=== PATIENT | female | born 1990 | race Caucasian/White ===

== ENCOUNTER 2023-06-28 18:25 | Observation (INO) ==
--- NOTE | 2023-06-28 18:37 | ED Triage Note ---
Date of Service June 28, 2023 Provider in Triage Author: Trevor Wyatt A History of Present Illness This patient was briefly evaluated while in triage. An abbreviated physical exam was performed. This patient is a 32-year-old Female who presents to the ED for evaluation of abdominal pain. 13 weeks . [facility]. Is from [place]. Scheduled to see Dr Ling locally next week. Has left side abd pain and headache. Symptoms started 4 or 5 days ago. No improvement with Tylenol. No hx abd surg. 5 pregnancies, 2 living children. No vaginal bleeding. Physical Exam Limited Triage Exam: VITALS: Vitals are noted on the nurse's note and reviewed by myself. Vital signs stable. GENERAL: Well-developed, well-nourished, white female, who is in no acute distress and resting comfortably. Patient is cooperative with the examination. HEART: Regular rate and rhythm without murmurs gallops or rubs. LUNGS: Clear to auscultation bilaterally without wheezes, rales or rhonchi. No retractions or accessory muscle use. NEURO: Patient was alert and oriented to person place and time. CN II through XII grossly intact. Initial orders for labs and / or imaging were placed and patient was placed in the waiting area until a bed is available. Please see further documentation for the full ED course. MDM / Impression Impression Impression: Pyelonephritis, First trimester , Acute left flank pain
[2023-06-28 19:13] LABS: Basophils # (auto) 0.02 K/uL (0.00-0.20); Basophils % (auto) 0.2 %; Eosinophils # (auto) 0.05 K/uL (0.00-0.50); Eosinophils % (auto) 0.4 %; Hematocrit (blood only) 32.1 % (37.0-47.0); Hemoglobin 10.7 g/dl (12.0-16.0); Immature Granulocytes # (auto) 0.06 K/uL (0.01-0.20); Immature Granulocytes % (auto) 0.5 %; Lymphocytes # (auto) 1.31 K/uL (1.20-3.40); Mean Corpuscular Hemoglobin 25.8 pg (25.0-34.0); Mean Corpuscular Hgb Conc 33.3 g/dL (32.0-36.0); Mean Corpuscular Volume 77.3 fL (80.0-100.0); Mean Platelet Volume 10.8 fL (9.4-12.4); Monocytes # (auto) 0.85 K/uL (0.11-0.59); Monocytes % (auto) 7.2 %; Neutrophils # (auto) 9.58 K/uL (1.40-6.50); Neutrophils % (auto) 80.7 %; Platelet Count 271 K/uL (130-400); RDW Coefficient of Variation 16.9 % (11.5-14.5); RDW Standard Deviation 47.7 fL (36.4-46.3); Red Blood Count 4.15 M/uL (4.20-5.40); White Blood Count 11.87 K/ul (4.8-10.8)
[2023-06-28 19:18] LABS: Appearance Urine Cloudy (Clear); Bacteria Urine Automated 4+ (None Seen); Bilirubin Urine Negative (Negative); Blood Urine Trace (Negative); Color Urine Yellow; Glucose Urine UA Negative (Negative); Ketones Urine Negative (Negative); Leukocyte Esterase Urine 3+ (Negative); Nitrite Urine Negative (Negative); Protein Urine Negative (Negative); RBC Urine Automated 0-2 /hpf (0-2); Specific Gravity Urine 1.007 (1.000-1.030); Urobilinogen Urine Negative (Negative); WBC Urine Automated >50 /hpf (0-5); pH Urine 6.5 (4.5-7.5)
[2023-06-28 19:30] LABS: Albumin Globulin Ratio 0.9 (0.9-2); Albumin Level 3.4 gm/dl (3.4-5.0); BUN Creatinine Ratio 10.5 (10-20); Bilirubin,Total 0.3 mg/dl (0.2-1.0); Calcium 9.5 mg/dl (8.6-10.3); Creatinine Clr Calc Pharmacy 138.7 ml/min; Est GFR (African American) 144.2 ml/min; Est GFR (Non-African American) 124.4 ml/min; Globulin 3.8 gm/dl (2.5-4.0); Potassium 3.5 mmol/L (3.5-5.1); Total Protein 7.2 gm/dl (6.0-8.3)
[2023-06-28 20:22] LABS: Amphetamines+Metham, Urine Pos (Neg); Barbiturates, Urine Neg (Neg); Benzodiazepine, Urine Neg (Neg); Cocaine, Urine Neg (Neg); MDMA (Ecstacy), Urine Neg (Neg); Marijuana, Urine Pos (Neg); Methadone, Urine Neg (Neg); Opiate, Urine Neg (Neg); Phencyclidine, Urine Neg (Neg)
[2023-06-28] MEDS ORDERED: PROMETHAZINE HCL 12.5 MG in SODIUM CHLORIDE 0.9% 50 ML IV STA (20:31)
--- NOTE | 2023-06-28 20:32 | Emergency Department Note ---
Impression & Plan Pyelonephritis, First trimester , Acute left flank pain ED Provider Note NAME: GERMAINE KOCH AGE: 32 SEX: F : 1990 ARRIVES VIA: Walk-In INFORMANT: Patient, ED PROVIDER(S): Eren Cabrales DO CHIEF COMPLAINT: Flank pain HPI: The patient is a 32-year-old female who presented to the emergency department for an evaluation of flank pain. The patient is currently 13 weeks by date. She has been noticing left-sided flank pain. She is unsure if she is having a kidney stone. She is not sure if she is having a urinary tract infection. She denies having any vaginal discharge. The patient does not have an [facility] doctor yet. She is currently living in a group home because of a very bad social situation. ROS: See above HPI for pertinent positives & negatives. A total of 10 systems reviewed and were otherwise negative. PAST MEDICAL HISTORY: See Below PAST SURGICAL HISTORY: See Below FAMILY HISTORY: See Below SOCIAL HISTORY: See Below HOME MEDICATIONS: See Below ALLERGIES: See Below VITALS: See Below PHYSICAL EXAMINATION: GENERAL: Patient is awake alert in no acute distress patient is resting comfortably and showing no signs of anxiety EYES: The conjunctivae are clear. The pupils are round and reactive. EARS, NOSE, MOUTH AND THROAT: The nose is without any evidence of any deformity. Mucous membranes are moist. Tongue is midline. NECK: The neck is nontender and supple. RESPIRATORY: Normal respiratory effort is noted there is no evidence of wheezing rhonchi or rales CARDIOVASCULAR: Regular rate and rhythm noted there no murmurs rubs or gallops normal S1 normal S2. GASTROINTESTINAL: The abdomen is soft and nondistended. There is left-sided tenderness to palpation but no guarding or rigidity. BACK: There is no midline tenderness noted. Left CVA tenderness was noted to percussion. MUSCULOSKELETAL/EXTREMITIES: There is no evidence of gross deformity full range of motion is noted in the hips and shoulders. SKIN: There is no obvious evidence of any rash. There are no petechiae, pallor or cyanosis noted. NEUROLOGIC: Patient is awake alert and oriented x3 strength is symmetric patellar reflexes are 2+ bilaterally MEDICAL DECISION MAKING: The patient is a 32-year-old female who presented to the emergency department for an evaluation of flank pain. The patient is also currently . The patient was treated with IV fluids as well as IV pain medication in the emergency department. She was also treated with IV antibiotics for presumed urinary tract infection. I discussed patient's laboratory and radiographic studies with her. Given her current social situation as well as her current I do feel the patient would be a better candidate for inpatient management. I discussed patient's condition with the on-call [facility] hospitalist. They did request that I discussed the case with the on-call [facility] physician. Triage Nursing notes reviewed. Prior medical records reviewed Vital Signs: reviewed and remarkable for no significant abnormalities Differential diagnosis: Etiologies such as threatened AB, miscarriage, ectopic , dysfunction uterine bleeding, bleeding dyscrasia, trauma, infection, as well as others were entertained. ER treatment provided: See below Diagnostics interpreted by me: ECG: none Cardiac Monitoring: An order was placed for continuous cardiac monitoring. The monitor shows a rate of 91 bpm with sinus rhythm. Laboratory studies: As stated above and show below. Imaging studies: See below. Consultation(s): I discussed this case with Dr. Mayen who is on-call for the [facility] hospitalist group. I discussed this case with Dr. Adam who is on-call for [facility]. Past Med/Surg History Problem List (Updated 06/28/23 @ 22:16 by Eren Cabrales DO) Acute left flank pain (Acute) First trimester (Acute) Pyelonephritis (Acute) Lymphoma Medical History Miscarriage Social History Smoking Status: Current every day smoker Feels Safe at Home: Yes Allergies Allergies Allergy/AdvReac Type Severity Reaction Status Date / Time bee venom protein (honey bee) Allergy Severe Anaphylaxis Verified 06/28/23 21:11 latex Allergy Intermediate HIVES/RASH Verified 06/28/23 21:11 Home Meds Home Medications Medication Instructions Recorded Confirmed acetaminophen 500 mg tablet 500 - 1,000 mg PO DIRECTED PRN 06/28/23 06/28/23 (Tylenol Extra Strength) Pain vit no.95-ferrous 1 tab PO DAILY 06/28/23 06/28/23 fumarate 28 mg-folic acid 800 mcg tablet () Results & Data (ED) Vital Signs Vital Signs - 24 hr 06/28/23 18:31 06/28/23 21:04 06/28/23 21:06 Temperature 36.9 C Temperature Source Temporal Artery Scan Pulse Rate 116 H Pulse Rate [Right Finger] 91 H Pulse Rhythm [Right Finger] Regular Pulse Strength [Right Finger] Normal Respiratory Rate 18 18 Respiratory Effort / Characteristics Non-Labored Spontaneous Non-Labored Spontaneous Respiratory Depth Normal Normal Respiratory Pattern Regular Regular Blood Pressure 107/67 Blood Pressure [Right Arm] 121/67 Blood Pressure Mean 80 Blood Pressure Mean [Right Arm] 85 Blood Pressure Position Sitting Pulse Oximetry 100 96 100 Oxygen Delivery Method Room Air Room Air Room Air Sepsis Recent Fever Within 48 Hours No Sepsis New/Unexplained Change in Mental Status N/A Sepsis Action Taken by Nursing No Action Required 06/28/23 22:21 Temperature Temperature Source Pulse Rate Pulse Rate [Right Finger] 101 H Pulse Rhythm [Right Finger] Regular Pulse Strength [Right Finger] Normal Respiratory Rate 19 Respiratory Effort / Characteristics Non-Labored Spontaneous Respiratory Depth Normal Respiratory Pattern Regular Blood Pressure Blood Pressure [Right Arm] 97/75 L Blood Pressure Mean Blood Pressure Mean [Right Arm] 82 Blood Pressure Position Pulse Oximetry 98 Oxygen Delivery Method Room Air Sepsis Recent Fever Within 48 Hours Sepsis New/Unexplained Change in Mental Status Sepsis Action Taken by Shelter Medications Current Medication List: was personally reviewed by me Laboratory Data Attestation: I reviewed the patient's lab results. 06/28/23 18:49 06/28/23 18:49 Lab Results 06/28/23 06/28/23 Range/Units 18:49 20:42 WBC 11.87 H (4.8-10.8) K/ul RBC 4.15 L (4.20-5.40) M/uL Hgb 10.7 L (12.0-16.0) g/dl Hct 32.1 L (37.0-47.0) % MCV 77.3 L (80.0-100.0) fL MCH 25.8 (25.0-34.0) pg MCHC 33.3 (32.0-36.0) g/dL RDW Std Deviation 47.7 H (36.4-46.3) fL RDW Coeff of [place] 16.9 H (11.5-14.5) % Plt Count 271 (130-400) K/uL MPV 10.8 (9.4-12.4) fL Immature Gran % (Auto) 0.5 % Neut % (Auto) 80.7 % Lymph % (Auto) 11.0 % Schleicher % (Auto) 7.2 % Eos % (Auto) 0.4 % Baso % (Auto) 0.2 % Neut # (Auto) 9.58 H (1.40-6.50) K/uL Lymph # (Auto) 1.31 (1.20-3.40) K/uL Schleicher # (Auto) 0.85 H (0.11-0.59) K/uL Eos # (Auto) 0.05 (0.00-0.50) K/uL Baso # (Auto) 0.02 (0.00-0.20) K/uL Immature Gran # (Auto) 0.06 (0.01-0.20) K/uL Sodium 134 L (136-145) mmol/L Potassium 3.5 (3.5-5.1) mmol/L Chloride 104 (98-107) mmol/L Carbon Dioxide 22 (21-32) mmol/L Anion Gap 8 (3-11) BUN 6 (6-23) mg/dl Creatinine 0.57 L (0.6-1.2) mg/dl Est Cr Clr Drug Dosing 138.7 ml/min Est GFR ( Amer) 144.2 ml/min Est GFR (Non-Af Amer) 124.4 ml/min BUN/Creatinine Ratio 10.5 (10-20) Glucose 99 (70-99(Fasting)) mg/dl Calcium 9.5 (8.6-10.3) mg/dl Total Bilirubin 0.3 (0.2-1.0) mg/dl AST 17 (13-39) U/L ALT 14 (7-52) U/L Alkaline Phosphatase 88 (34-104) U/L Total Protein 7.2 (6.0-8.3) gm/dl Albumin 3.4 (3.4-5.0) gm/dl Globulin 3.8 (2.5-4.0) gm/dl Albumin/Globulin Ratio 0.9 (0.9-2) Lipase 11 (11-82) U/L HCG, Quant 89921 mIU/ml Urine Color Yellow Urine Appearance Cloudy A (Clear) Urine pH 6.5 (4.5-7.5) Ur Specific [place] 1.007 (1.000-1.030) Urine Protein Negative (Negative) Urine Glucose (UA) Negative (Negative) Urine Ketones Negative (Negative) Urine Blood Trace H (Negative) Urine Nitrite Negative (Negative) Urine Bilirubin Negative (Negative) Urine Urobilinogen Negative (Negative) Ur Leukocyte Esterase 3+ H (Negative) Urine WBC (Auto) >50 H (0-5) /hpf Urine RBC (Auto) 0-2 (0-2) /hpf U Hyaline Cast (Auto) 3-5 H (0-2) /lpf U Epithel Cells (Auto) 11-20 H (0-2) /hpf Urine Bacteria (Auto) 4+ H (None Seen) Urine Opiates Screen Neg (Neg) Ur Methadone, Qual Neg (Neg) Urine Barbiturates Neg (Neg) Ur Phencyclidine (PCP) Neg (Neg) U Amphetamin/Meth Scrn Pos H (Neg) MDMA (Ecstasy) Screen Neg (Neg) U Benzodiazepines Scrn Neg (Neg) Ur Cocaine Metabolite Neg (Neg) U Marijuana (THC) Screen Pos H (Neg) Blood Type A Positive Administered Medications Discontinued Medications Ceftriaxone Sodium (Rocephin) 2,000 mg in 50 mls @ 100 mls/hr IV NOW STA Stop: 06/28/23 20:51 Last Infusion: 06/28/23 22:20 Dose: Infused Documented By: Admin: 06/28/23 21:02 Dose: 100 mls/hr Documented By: GLORIA Sodium Chloride (Nss) 1,000 mls @ 999 mls/hr IV .Q1H1M ONE Stop: 06/28/23 21:22 Last Infusion: 06/28/23 22:21 Dose: Infused Documented By: Admin: 06/28/23 21:00 Dose: 999 mls/hr Documented By: GLORIA Acetaminophen (Ofirmev) 1,000 mg in 100 mls @ 400 mls/hr IV NOW STA Stop: 06/28/23 20:45 Last Infusion: 06/28/23 21:28 Dose: Infused Documented By: Admin: 06/28/23 21:13 Dose: 400 mls/hr Documented By: GLORIA Promethazine HCl (Phenergan) 12.5 mg in 50.5 mls @ 202 mls/hr IV NOW STA Stop: 06/28/23 21:44 Last Admin: 06/28/23 22:19 Dose: 202 mls/hr Documented By: GLORIA Imaging Data Attestation: I personally reviewed and interpreted this imaging study as follows: My Impression: I reviewed the images with [facility]. The ultrasound appears to be consistent with a single live intrauterine gestation at approximately 12 weeks and 3 days. The retroperitoneal ultrasound appears to be consistent with increased echogenicity of the left kidney possible pyelonephritis, final reports are pending. Discharge Plan Visit Data Chief Complaint: Abdominal Pain Stated Complaint: PREG 13 WKS, LT FLANK/ABD PAIN, MIGRAINES ED Provider: Eren Cabrales Discharge Problem: Pyelonephritis, First trimester , Acute left flank pain Patient Disposition: Being Evaluated by Hospitalist Forms Stand Alone Forms: [facility] Prescriptions Prescriptions: No Action acetaminophen [Tylenol Extra Strength] 500 mg Tablet 500 - 1,000 mg PO DIRECTED PRN (Reason: Pain) PNV cmb#95-ferrous fumarate-FA [] 28 mg iron- 800 mcg Tablet 1 tab PO DAILY Referrals Referrals: PCP,NO [Primary Care Provider] -
[2023-06-28] MEDS: SODIUM CHLORIDE 0.9% 1,000 ML IV ONE (21:00)
[2023-06-28] MEDS: cefTRIAXone SODIUM 2,000 MG/50 ML BAG IV STA (21:02)
[2023-06-28] MEDS: ACETAMINOPHEN 1,000 MG/100 ML VIAL IV STA (21:13)
[2023-06-28] MEDS: PROMETHAZINE 12.5 MG/50.5 ML BAG IV STA (22:19)
--- NOTE | 2023-06-28 23:11 | Ultrasound Report ---
Exam(s): US OB 1st TRIMESTER EXAM: US First Trimester , Transabdominal CLINICAL HISTORY: Reason for exam: left side abd pain. +. TECHNIQUE: Real-time transabdominal obstetrical ultrasound of the maternal pelvis and a first trimester with image documentation. COMPARISON: No relevant prior studies available. FINDINGS: Gestation: There is a single intrauterine fetus. pole crown- rump length measures 5.86 cm consistent with 12 weeks 3 days gestation. heart rate 180 bpm. There is a yolk sac measuring 4 mm. Anatomy: The estimated date delivery is January 07, 2024. Placenta/amniotic fluid: Cannot be adequately evaluated due to the early gestational age. Uterus/cervix: Unremarkable. No myometrial mass. Ovaries: The right ovary measures 3.5 x 1.7 x 2.6 cm with normal Doppler blood flow. The left ovary measures 2.6 x 1.2 x 2.3 cm with normal appearance and normal Doppler blood flow. No mass. Free fluid: No free fluid. IMPRESSION: Single live intrauterine fetus with size consistent with 12 weeks 3 days gestation. The estimated date of delivery is January 07, 2024. Electronically signed by: Cedrick Carmona MD 06/28/23 23:10 PM
--- NOTE | 2023-06-28 23:20 | Ultrasound Report ---
Exam(s): US RENAL EXAM: US Retroperitoneal Limited, Renal CLINICAL HISTORY: Reason for exam: flank pain. TECHNIQUE: Real-time limited ultrasound of the retroperitoneum with image documentation. COMPARISON: No relevant prior studies available. FINDINGS: Right kidney: The right kidney measures 12.3 x 4.5 x 5.6 cm with normal appearance. No hydronephrosis or mass. No stones. Left kidney: The left kidney measures 15.3 x 6.7 x 5.2 cm with mild hydronephrosis. No mass or calculus is seen. Slight improved left hydronephrosis postvoid. IMPRESSION: Mild left hydronephrosis, slightly improved postvoid. Electronically signed by: Cedrick Carmona MD 06/28/23 23:19 PM
--- NOTE | 2023-06-28 23:30 | History & Physical Report ---
Date of Service June 28, 2023 Assessment & Plan (1) Acute left flank pain: (2) Pyelonephritis: (3) First trimester : Plan Pyelonephritis -CBC 11.87k, UA with trace blood, +leukocyte esterase. Urine culture pending -Renal ultrasound with evidence of mild hydronephrosis -Afebrile, mild tachycardia with HR 90s-100s -Received 1x Ceftriaxone in ED, will continue q24h Ceftriaxone -Ordered 1L NSS @ 100ml/h -Tylenol PRN -Repeat CBC, BMP in a.m. First Trimester -, patient states she is about 13 weeks - ultrasound completed in ED, estimated gestation from US: 12 weeks 3 days -Patient notes she had an US last week but states it was at a [facility]" that did not allow her to the screen during the exam and only provided information about services -ED physician discussed with Dr. Adam, formal consult ordered -Initial labs ordered by Dr. 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 Admit to med/tele VTE Prophylaxis: SCDs, early ambulation Diet: Regular Code Status: Full Code History of Present Illness Primary Care Provider: NO PCP Akua Watkins is a 32 year-old female with a history of Hodgkin's lymphoma (2008) and asthma who presents to the ED for several days of left sided flank pain. She states that she is from [place] but recently moved to the area and is staying at a intermediate[facility]. Patient notes that she is currently 13 weeks , she does not have a local OB provider yet but is scheduled to see [facility] in a few weeks. She states she has had ongoing headaches and left sided flank pain for several days, denies shortness of breath/chest pain/changes in bowel habits. She denies dysuria or increased urinary frequency but endorses an unusual smell to her urine as well as vaginal discharge but felt that was normal for her being . She states she has been eating and drinking without difficulty. She endorses prior UTIs but has never had pyelonephritis before. Patient states she has a sister-figure (part of her former foster family) who lives locally. States she is planning to stay in [place] for the foreseeable future. Notes that in her prior pregnancies she has gotten care from several different providers in the [facility]. She states that she feels comfortable at the [facility] and it has been supportive for her. ED Course: -Ceftriaxone -CBC, CMP, UA - ultrasound, renal ultrasound Allergies Allergy/AdvReac Type Severity Reaction Status Date / Time bee venom protein (honey bee) Allergy Severe Anaphylaxis Verified 06/28/23 21:11 latex Allergy Intermediate HIVES/RASH Verified 06/28/23 21:11 Home Medications Medication Instructions Recorded Confirmed Type acetaminophen 500 mg tablet 500 - 1,000 mg PO DIRECTED PRN 06/28/23 06/28/23 History (Tylenol Extra Strength) Pain vit no.95-ferrous 1 tab PO DAILY 06/28/23 06/28/23 History fumarate 28 mg-folic acid 800 mcg tablet () cefdinir 300 mg capsule 300 mg PO BID #14 caps 06/29/23 Rx Past Med/Surg History Problem List (Updated 06/29/23 @ 10:06 by Mariam Ayon) Positive urine drug screen (Acute) Tobacco dependence (Acute) Acute left flank pain (Acute) First trimester (Acute) Pyelonephritis (Acute) Lymphoma Medical History Miscarriage Social History Smoking Status: Current every day smoker Hx Alcohol Use: No Hx Substance Use: Yes Last Used Substance: Unknown Last Used Substance Other:: states she does not currently use but drug screen is positive Preferred Language: Faroese Communication Ability: Effective Fine Arts Instructor Required: No Beliefs That Will Affect Care: None Current Living Situation: Other Current Living Situation Comment: [facility] Feels Safe at Home: Yes Review of Systems Review of Systems: As per above Physical Exam Constitutional: WD/WN, vitals as above Eyes: + anicteric sclerae; no conjunctival abn ormality ENMT: Ears: no external ear abnormality Nose: no external nose abnormality moist mucous membranes Respiratory: normal respiratory effort, lungs clear to auscultation Cardiovascular: Rate/Rhythm: regular rate and regular rhythm Extremities: no edema Gastrointestinal (Abdomen): Inspection/Auscultation: no abdominal edema Percussion/Palpation: abdomen soft; abdomen nontender and no guarding Musculoskeletal: Left sided CVA tenderness noted. Skin: skin warm, dry. Several scabs noted on bilateral lower legs. Neurologic: no focal motor deficits Psychiatric: A+Ox3, euthymic affect Results & Data Results & Data Vital Signs (Past 12 Hours) Vital Signs Temp Pulse Pulse Resp BP BP Pulse Ox 06/28/23 22:30 97 H 06/28/23 22:21 101 H 19 97/75 L 98 06/28/23 21:06 100 06/28/23 21:04 91 H 18 121/67 96 06/28/23 18:31 36.9 C 116 H 18 107/67 100 O2 Del Method 06/28/23 22:30 06/28/23 22:21 Room Air 06/28/23 21:06 Room Air 06/28/23 21:04 Room Air 06/28/23 18:31 Room Air Diagnostic Findings Ultrasound 06/28/23 18:37 Exam(s): US OB 1st TRIMESTER EXAM: US First Trimester , Transabdominal CLINICAL HISTORY: Reason for exam: left side abd pain. +. TECHNIQUE: Real-time transabdominal obstetrical ultrasound of the maternal pelvis and a first trimester with image documentation. COMPARISON: No relevant prior studies available. FINDINGS: Gestation: There is a single intrauterine fetus. pole crown- rump length measures 5.86 cm consistent with 12 weeks 3 days gestation. heart rate 180 bpm. There is a yolk sac measuring 4 mm. Anatomy: The estimated date delivery is January 07, 2024. Placenta/amniotic fluid: Cannot be adequately evaluated due to the early gestational age. Uterus/cervix: Unremarkable. No myometrial mass. Ovaries: The right ovary measures 3.5 x 1.7 x 2.6 cm with normal Doppler blood flow. The left ovary measures 2.6 x 1.2 x 2.3 cm with normal appearance and normal Doppler blood flow. No mass. Free fluid: No free fluid. IMPRESSION: Single live intrauterine fetus with size consistent with 12 weeks 3 days gestation. The estimated date of delivery is January 07, 2024. Electronically signed by: Cedrick Carmona MD 06/28/23 23:10 PM Renal Ultrasound 06/28/23 20:22 Exam(s): US RENAL EXAM: US Retroperitoneal Limited, Renal CLINICAL HISTORY: Reason for exam: flank pain. TECHNIQUE: Real-time limited ultrasound of the retroperitoneum with image documentation. COMPARISON: No relevant prior studies available. FINDINGS: Right kidney: The right kidney measures 12.3 x 4.5 x 5.6 cm with normal appearance. No hydronephrosis or mass. No stones. Left kidney: The left kidney measures 15.3 x 6.7 x 5.2 cm with mild hydronephrosis. No mass or calculus is seen. Slight improved left hydronephrosis postvoid. IMPRESSION: Mild left hydronephrosis, slightly improved postvoid. Electronically signed by: Cedrick Carmona MD 06/28/23 23:19 PM Supervising Physician Co-Signing Physician Notes Attending addendum: I have supervised the medical residents activities, and agree with the H&P unless as otherwise noted. Assessment and Plan: Left-sided pyelonephritis- Follow urine culture and sensitivity Continue empiric ceftriaxone IV Status post 1 L normal saline in the ED Status post Tylenol 1 g IV in ED Continue IV fluids as noted First trimester - Approximate 13 weeks Will be seen by [facility], Dr. Adam, this admission ultrasound performed with gestation approximately 12 weeks and 3 days Urine drug screen Positive for marijuana and amphetamine/methamphetamine Confirmatory tests pending Cessation counseling Resident Activity Tracking Resident Involvement: Resident Care Provided Care Provided: Adult [facility] Medicine
[2023-06-28] MEDS: SODIUM CHLORIDE 0.9% 1,000 ML IV SCH (23:52)
[2023-06-29] MEDS: ACETAMINOPHEN 325 MG TAB PO PRN (04:27)
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
[2023-06-29] MEDS ORDERED: PYRIDOXINE HCL 50 MG TAB PO PRN (08:06)
[2023-06-29] MEDS: PRENATAL VITAMIN 1 TAB PO SCH (08:44)
--- NOTE | 2023-06-29 09:26 | Hospitalist Progress Note ---
Date of Service June 29, 2023 Assessment & Plan (1) Pyelonephritis: (2) Acute left flank pain: (3) First trimester : (4) Positive urine drug screen: (5) Tobacco dependence: Plan Pyelonephritis - Afebrile, mild tachycardia with HR 90s-100s - WBCs 11.87k, UA with trace blood, +leukocyte esterase. Urine culture + for gram negative bacilli - Renal ultrasound with evidence of mild left sided hydronephrosis - Received 1x Ceftriaxone in ED, will continue q24h Ceftriaxone - Ordered 1L NSS @ 100ml/h. - Tylenol PRN. Will continue to monitor for improvement. Plan to discharge. Acute Left Flank Pain - As above. First Trimester - [id number] female at 12wks of gestation - ultrasound completed in ED, estimated gestation from US: 12 weeks 3 days - Patient notes she had an US last week but states it was at a "[facility] clinic" that did not allow her to see the screen during the exam and only provided information about services. - Initial labs ordered by Dr. Adam on admission. She has so far declined a blood draws. No daily FHT's unless patient requests. - Pt has an appt with [facility] nurse on 07/03 and MD visit on 07/11. Positive Urine Drug Screen -UDS in ED positive for marijuana, amphetamines/meth -Confirmatory tests sent, results pending Tobacco Dependence - 0.25 pk/day smoke history for 12 years (Since age 20) - Pt aware of the harmful impact of smoking on development. Pt rejected the tobacco cessation resources offered. Admit to med/tele VTE Prophylaxis: SCDs, early ambulation Diet: Regular Code Status: Full Code Admission and Anticipated Discharge Date Admission Date: June 28, 2023 Pedro Fatima is a 32yo [id number] female at 12wks of gestation w/ a pmh of Hodgkin lymphoma (2008), asthma, UTIs, 0.25 pk/day smoke history for 12 years, and a history of illicit drug use (previously cocaine, heroin IV. Currently, cannabis daily and methamphetamine frequently) who presented to the ED with 5 days of left sided flank pain. Today she states she is "still in pain" and feels "not so great". She states that she refused her AM lab work because "being poked with needles is triggering because I used to do it." Review of Systems 2 Review of Systems: Constitutional Denies fever, dizziness, sleep disturbances, weakness, fatigue, decreased activity, malaise, appetite loss, weight loss or gain. + Chills and sweats throughout the night HEENT Denies dysphagia, sinus pain, sore throat, taste disturbances. Denies decreased hearing, ear pain, nasal discharge. Denies recent visual problems, blurring, double vision, dry eyes. + headache. Respiratory Denies SOB, cough, sputum production, wheezing, pleuritic pain, hemoptysis. CV Denies chest pain, palpitations, bradycardia, tachycardia, edema, claudication. GI Denies n/v/d, constipation, heartburn, abdominal tenderness, change in bowel habits. Denies dysuria, hematuria, frequency, incontinence, retention, or urgency. + Left flank pain and vaginal discharge. MSK Denies muscle or joint pain, decreased range of motion, stiffness, weakness. Integumentary Denies rash, dryness, or skin lesions. Neurologic Denies altered mental status, gait disturbance, or numbness. Psych Denies anxiety and depression. Physical Exam 2 Physical Exam: General Alert and oriented x 4, well appearing, in no acute distress. HEENT Normocephalic, atraumatic, pupil equal round reactive to light, no lymphadenopathy, no thyromegaly. Respiratory Chest is clear to auscultation bilaterally with no wheezing, rales, or rhonchi. Cardiovascular Heart has regular rate and rhythm with no rubs, murmurs, or gallops. No carotid bruits, JVD, or lower extremity edema. Abdomen nontender, gravid, normal bowel sounds, no hepatosplenomegaly. + left sided CVA tenderness. Psychiatric Appropriate mood and affect. Results & Data Results & Data Vital Signs (Past 12 Hours) Vital Signs Pulse Pulse Resp BP Pulse Ox Pulse Ox O2 Del Method 06/29/23 08:45 106 H 18 110/70 99 Room Air 06/29/23 07:08 98 H 06/29/23 06:00 108 H 18 110/66 96 Room Air 06/29/23 04:47 107 H 18 114/84 97 Room Air 06/29/23 03:00 95 H 18 124/72 98 Room Air 06/29/23 02:23 99 H 05/15/24 01:14 88 18 107/70 100 Room Air 06/29/23 00:31 100 06/29/23 00:31 82 18 107/70 100 Room Air 06/28/23 22:30 97 H 06/28/23 22:21 101 H 19 97/75 L 98 Room Air Laboratory Results 06/28/23 18:49 06/28/23 18:49 Diagnostic Findings Ultrasound 06/28/23 18:37 FINDINGS: Gestation: There is a single intrauterine fetus. pole crown- rump length measures 5.86 cm consistent with 12 weeks 3 days gestation. heart rate 180 bpm. There is a yolk sac measuring 4 mm. Anatomy: The estimated date delivery is January 07, 2024. Placenta/amniotic fluid: Cannot be adequately evaluated due to the early gestational age. Uterus/cervix: Unremarkable. No myometrial mass. Ovaries: The right ovary measures 3.5 x 1.7 x 2.6 cm with normal Doppler blood flow. The left ovary measures 2.6 x 1.2 x 2.3 cm with normal appearance and normal Doppler blood flow. No mass. Free fluid: No free fluid. IMPRESSION: Single live intrauterine fetus with size consistent with 12 weeks 3 days gestation. The estimated date of delivery is January 07, 2024. Electronically signed by: Cedrick Carmona MD 06/28/23 23:10 PM Renal Ultrasound 06/28/23 20:22 FINDINGS: Right kidney: The right kidney measures 12.3 x 4.5 x 5.6 cm with normal appearance. No hydronephrosis or mass. No stones. Left kidney: The left kidney measures 15.3 x 6.7 x 5.2 cm with mild hydronephrosis. No mass or calculus is seen. Slight improved left hydronephrosis postvoid. IMPRESSION: Mild left hydronephrosis, slightly improved postvoid. Electronically signed by: Cedrick Carmona MD 06/28/23 23:19 PM Medications Administered Current Inpatient Medications Acetaminophen (Acetaminophen 325 Mg Tab) 650 mg PO Q4H PRN PRN Reason: Pain or Fever Stop: 07/28/23 23:43 Last Admin: 06/29/23 04:27 Dose: 650 mg Ceftriaxone Sodium (Rocephin) 2,000 mg in 50 mls @ 100 mls/hr IV Q24H AMISH Stop: 07/09/23 20:59 Lidocaine (Lidocaine 5% 1 Patch) 1 patch TD QAM [facility] Stop: 07/29/23 09:14 Last Admin: 06/29/23 09:35 Dose: 1 patch Miscellaneous (Remove Lidoderm Patch) 1 each N/A DAILY@2100 [facility] Stop: 07/29/23 20:59 Prenat Multivit/[place]/Iron/Folic Ac ( Vitamin 1 Tab) 1 tab PO DAILY [facility] Stop: 07/29/23 08:59 Last Admin: 06/29/23 08:44 Dose: 1 tab Pyridoxine HCl (Pyridoxine Hcl 50 Mg Tab) 25 mg PO Q6H PRN PRN Reason: Nausea And Vomiting Stop: 07/29/23 08:14
[2023-06-29] MEDS: LIDOCAINE 5% 1 PATCH TD SCH (09:35)
[2023-06-29] MEDS ORDERED: IRON SUCROSE 300 MG in SODIUM CHLORIDE 0.9% 250 ML IV ONE (13:15)
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
--- NOTE | 2023-06-29 19:35 | Billing Data ---
Date of Service June 29, 2023 Coding Level of Care Code 21577 INT INP/OBS CARE
[2023-06-29] MEDS ORDERED: CEFDINIR 300 MG CAP PO SCH (21:00)
[2023-06-29] MEDS ORDERED: cefTRIAXone SODIUM 2,000 MG/50 ML BAG IV SCH (21:00)
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
[2023-07-02 13:03] LABS: Amphetamine Urine, Confirm 1060 ng/mL (<250); Marijuana Quant, GCMS Urine 60 ng/mL (<5); Methamphetamine, Ur Confirm 3180 ng/mL (<250)
== END 2023-06-29 14:00 | disposition left against medical advice (07) ==
LOC: EDINP 18:25 → ED 18:25 → SUATTDRO 23:30 → 2N 06-29 12:45
DX: Z3A.13 13 weeks gestation of pregnancy; O99.331 Smoking (tobacco) complicating pregnancy, first trimester; F12.10 Cannabis abuse, uncomplicated; B96.89 Other specified bacterial agents as the cause of diseases classified elsewhere; Z67.10 Type A blood, Rh positive; F15.10 Other stimulant abuse, uncomplicated; O23.01 Infections of kidney in pregnancy, first trimester; Z91.040 Latex allergy status; O99.321 Drug use complicating pregnancy, first trimester; Z91.030 Bee allergy status; F17.210 Nicotine dependence, cigarettes, uncomplicated; N12 Tubulo-interstitial nephritis, not specified as acute or chronic

== ENCOUNTER 2023-10-31 20:34 | Inpatient (IN) ==
[2023-10-31 22:00] LABS: Albumin Level 3.7 gm/dl (3.4-5.0); Anion Gap 10 (3-11); Appearance Urine Turbid (Clear); Bacteria Urine Automated 4+ (None Seen); Bilirubin Urine Negative (Negative); Bilirubin,Total 0.4 mg/dl (0.2-1.0); Blood Urine 1+ (Negative); Calcium 9.1 mg/dl (8.6-10.3); Carbon Dioxide 19 mmol/L (21-32); Chloride 104 mmol/L (98-107); Color Urine Yellow; Epithelial Cell Urine Auto >20 /hpf (0-2); Glucose Urine UA Negative (Negative); Ketones Urine 3+ (Negative); Leukocyte Esterase Urine 2+ (Negative); Nitrite Urine Negative (Negative); Potassium 3.4 mmol/L (3.5-5.1); Protein Urine 1+ (Negative); Sodium 133 mmol/L (136-145); Specific Gravity Urine 1.028 (1.000-1.030); Urobilinogen Urine Negative (Negative); WBC Urine Automated >50 /hpf (0-5)
[2023-10-31 22:06] LABS: Alanine Aminotransferase 5 U/L (7-52); Alkaline Phosphatase 65 U/L (34-104); Aspartate Aminotransferase 13 U/L (13-39); BUN Creatinine Ratio 10.9 (10-20); Blood Urea Nitrogen 6 mg/dl (6-23); Est GFR (African American) 144.9 ml/min; Globulin 3.6 gm/dl (2.5-4.0); Glucose 112 mg/dl (70-99(Fasting)); Total Protein 7.3 gm/dl (6.0-8.3)
[2023-10-31 22:32] LABS: Basophils # (auto) 0.04 K/uL (0.00-0.20); Basophils % (auto) 0.2 %; Eosinophils % (auto) 0.5 %; Hematocrit (blood only) 31.4 % (37.0-47.0); Hemoglobin 10.2 g/dl (12.0-16.0); Immature Granulocytes # (auto) 0.16 K/uL (0.01-0.20); Immature Granulocytes % (auto) 0.8 %; Lymphocytes # (auto) 1.41 K/uL (1.20-3.40); Lymphocytes % (auto) 6.7 %; Mean Corpuscular Hemoglobin 26.3 pg (25.0-34.0); Mean Corpuscular Hgb Conc 32.5 g/dL (32.0-36.0); Mean Corpuscular Volume 80.9 fL (80.0-100.0); Mean Platelet Volume 11.7 fL (9.4-12.4); Monocytes # (auto) 1.52 K/uL (0.11-0.59); Monocytes % (auto) 7.2 %; Neutrophils # (auto) 17.88 K/uL (1.40-6.50); Neutrophils % (auto) 84.6 %; Platelet Count 187 K/uL (130-400); RDW Coefficient of Variation 14.4 % (11.5-14.5); RDW Standard Deviation 42.2 fL (36.4-46.3); Red Blood Count 3.88 M/uL (4.20-5.40); White Blood Count 21.11 K/ul (4.8-10.8)
[2023-10-31] MEDS: SODIUM CHLORIDE 0.9% 500 ML IV STA (23:21)
[2023-10-31] MEDS: cefTRIAXone SODIUM 2,000 MG/50 ML BAG IV STA (23:21)
[2023-10-31] MEDS: SODIUM CHLORIDE 0.9% 1,000 ML IV ONE (23:21)
[2023-10-31] MEDS: SODIUM CHLORIDE 0.9% 1,000 ML IV SCH (23:57)
[2023-11-01] MEDS: FAMOTIDINE 20MG IV PUSH 20 MG/5 ML SYR IV STA (00:30)
--- NOTE | 2023-11-01 00:38 | Emergency Department Note ---
ED Provider Note History of Present Illness Chief Complaint: Flank Pain Stated Complaint: 30WKS PREG, FEVER, LT FLANK PAIN, SLEEPING A LOT Time Seen by Provider: 10/31/23 21:57 Source: patient Mode of arrival: ambulatory Limitations: no limitations Patient is a 33-year-old female who presents to the emergency department for evaluation of left flank pain. Patient reports that she is 30 weeks . She states that she has had left flank pain for the past 2 days. She is generally feeling weak and dizzy. She has had some fevers at home. She reports a history of frequent UTIs especially during . She is currently on Macrobid daily to help prevent these. She states that the flank pain is fairly severe and she has been taking Tylenol for it. She has not noticed urinary symptoms but states that she does frequently have UTIs without having symptoms. She reports feeling normal movement and denies any vaginal bleeding. Home Medications Medication Instructions Recorded Confirmed Type vit no.95-ferrous 1 tab PO DAILY 06/28/23 10/20/23 History fumarate 28 mg-folic acid 800 mcg tablet () nitrofurantoin 100 mg PO DAILY 30 days #30 caps 09/22/23 10/20/23 Rx monohydrate/macrocrystals 100 mg capsule (Macrobid) amoxicillin 875 mg-potassium 1 tab PO BID 7 days #14 tabs 10/07/23 10/20/23 Rx clavulanate 125 mg tablet nicotine 21 mg/24 hr daily 1 patch transdermal DAILY #28 ea 10/20/23 10/20/23 Rx transdermal patch Allergies Allergy/AdvReac Type Severity Reaction Status Date / Time bee venom protein (honey bee) Allergy Severe Anaphylaxis Verified 10/20/23 16:23 latex Allergy Intermediate HIVES/RASH Verified 10/20/23 16:23 Past Med/Surg History Problem List Back pain affecting History of drug use heroin, cocaine, meth First trimester Current every day smoker Drug use affecting Encounter for anatomic survey Positive urine drug screen (Acute) Medical History HPV (human papilloma virus) infection Hodgkins lymphoma Tobacco dependence Acute left flank pain Pyelonephritis Lymphoma Miscarriage Surgical History H/O lymph node biopsy History of removal of Port-a-Cath Status post colposcopy Hx of dilation and curettage Family History Grandmother Cancer Mother Alcoholism Father Alcoholism Denies family history of Ovarian cancer Breast cancer Colorectal cancer Social History Smoking Status: Current every day smoker Tobacco Type: Cigarettes packs per day: 0.25; Cigarettes Per Day: 5; Second Hand Exposure: Yes; Do You Dip or Chew Tobacco: No; Hx Alcohol Use: No Hx Substance Use: Yes Non-Prescribed Medications Comment: Patient states "I used everything and anything" +UDS on 06/28/23 Last Used Substance: Days (ago) Last Used Substance Other:: yesterday Substance Use Type Other:: has MJ card Preferred Language: Ukrainian Communication Ability: Effective Gallery Manager Required: No Beliefs That Will Affect Care: None marital status: Single marital status details: Anastasiia Hernandez (Sister) [phone] Current Living Situation: Other Current Living Situation Comment: [facility] current occupational status: unemployed How many Children do You have: 2 Feels Safe at Home: Yes Physical Exam Vital Signs Vital Signs - 24 hr 10/31/23 20:51 10/31/23 22:00 10/31/23 23:44 Temperature 36.0 C L Temperature Source Temporal Artery Scan Pulse Rate 97 H Pulse Rate [Finger] 97 H 88 Pulse Rhythm [Finger] Regular Regular Pulse Strength [Finger] Normal Respiratory Rate 18 18 18 Respiratory Effort / Characteristics Non-Labored Spontaneous Non-Labored Non-Labored Spontaneous Respiratory Depth Normal Normal Normal Respiratory Pattern Regular Regular Regular Blood Pressure 92/46 L Blood Pressure [Right Arm] 97/69 L Blood Pressure Mean 61 Blood Pressure Mean [Right Arm] 78 Pulse Oximetry 96 99 98 Oxygen Delivery Method Room Air Room Air Room Air Sepsis Recent Fever Within 48 Hours Yes Sepsis New/Unexplained Change in Mental Status No Sepsis Action Taken by Nursing No Action Required VITALS: Vitals are noted on the nurse's note and reviewed by myself. GENERAL: This is a 33-year-old female, in no acute distress, well-developed well-nourished. SKIN: The skin was without rashes. MOUTH: Mucous membranes moist. NECK: Supple without nuchal rigidity. HEART: Regular rate and rhythm without murmurs gallops or rubs. LUNGS: Clear to auscultation bilaterally without wheezes, rales or rhonchi. ABDOMEN: Positive bowel sounds x 4. Gravid abdomen. Left CVA tenderness. No abdominal tenderness. NEURO: Patient was alert and oriented to person place and time. Course Administered Medications Discontinued Medications Sodium Chloride (Nss) 500 mls @ 999 mls/hr IV .Q31M STA Stop: 10/31/23 21:54 Last Admin: 10/31/23 23:21 Dose: Not Given Documented By: [facility] Sodium Chloride (Nss) 1,000 mls @ 999 mls/hr IV .Q1H1M ONE Stop: 10/31/23 22:37 Last Infusion: 11/01/23 00:27 Dose: Infused Documented By: [facility] Admin: 10/31/23 23:21 Dose: 999 mls/hr Documented By: [facility] Sodium Chloride (Nss) 1,000 mls @ 999 mls/hr IV .Q1H1M AMISH Stop: 11/01/23 00:30 Last Infusion: 11/01/23 01:04 Dose: Infused Documented By: [facility] Admin: 11/01/23 00:19 Dose: Not Given Documented By: [facility] Admin: 10/31/23 23:57 Dose: 999 mls/hr Documented By: [facility] Ceftriaxone Sodium (Rocephin) 2,000 mg in 50 mls @ 100 mls/hr IV NOW STA Stop: 10/31/23 22:49 Last Infusion: 10/31/23 23:53 Dose: Infused Documented By: [facility] Admin: 10/31/23 23:21 Dose: 100 mls/hr Documented By: [facility] Famotidine (Pepcid 20mg Iv Push) 20 mg in 5 mls @ 2.5 mls/min IV NOW STA Stop: 11/01/23 00:23 Last Admin: 11/01/23 00:30 Dose: 2.5 mls/min Documented By: [facility] Medical Decision Making Differential Diagnosis Differential diagnosis includes pyelonephritis, kidney stone, UTI, placental abruption, labor, among others. Laboratory Data Attestation: I reviewed the patient's lab results. 10/31/23 21:32 10/31/23 21:32 Lab Results 10/31/23 10/31/23 Range/Units 21:32 23:10 WBC 21.11 H (4.8-10.8) K/ul RBC 3.88 L (4.20-5.40) M/uL Hgb 10.2 L (12.0-16.0) g/dl Hct 31.4 L (37.0-47.0) % MCV 80.9 (80.0-100.0) fL MCH 26.3 (25.0-34.0) pg MCHC 32.5 (32.0-36.0) g/dL RDW Std Deviation 42.2 (36.4-46.3) fL RDW Coeff of [place] 14.4 (11.5-14.5) % Plt Count 187 (130-400) K/uL MPV 11.7 (9.4-12.4) fL Immature Gran % (Auto) 0.8 % Neut % (Auto) 84.6 % Lymph % (Auto) 6.7 % [place] % (Auto) 7.2 % Eos % (Auto) 0.5 % Baso % (Auto) 0.2 % Neut # (Auto) 17.88 H (1.40-6.50) K/uL Lymph # (Auto) 1.41 (1.20-3.40) K/uL Wilcox # (Auto) 1.52 H (0.11-0.59) K/uL Eos # (Auto) 0.10 (0.00-0.50) K/uL Baso # (Auto) 0.04 (0.00-0.20) K/uL Immature Gran # (Auto) 0.16 (0.01-0.20) K/uL Sodium 133 L (136-145) mmol/L Potassium 3.4 L (3.5-5.1) mmol/L Chloride 104 (98-107) mmol/L Carbon Dioxide 19 L (21-32) mmol/L Anion Gap 10 (3-11) BUN 6 (6-23) mg/dl Creatinine 0.55 L (0.6-1.2) mg/dl Est Cr Clr Drug Dosing Not Reportable Est GFR ( Amer) 144.9 ml/min Est GFR (Non-Af Amer) 125.0 ml/min BUN/Creatinine Ratio 10.9 (10-20) Glucose 112 H (70-99(Fasting)) mg/dl Lactate 0.7 (0.4-2.0) mmol/L Calcium 9.1 (8.6-10.3) mg/dl Total Bilirubin 0.4 (0.2-1.0) mg/dl AST 13 (13-39) U/L ALT 5 L (7-52) U/L Alkaline Phosphatase 65 (34-104) U/L Total Protein 7.3 (6.0-8.3) gm/dl Albumin 3.7 (3.4-5.0) gm/dl Globulin 3.6 (2.5-4.0) gm/dl Albumin/Globulin Ratio 1.0 (0.9-2) Urine Color Yellow Urine Appearance Turbid A (Clear) Urine pH 6.0 (4.5-7.5) Ur Specific [place] 1.028 (1.000-1.030) Urine Protein 1+ H (Negative) Urine Glucose (UA) Negative (Negative) Urine Ketones 3+ H (Negative) Urine Blood 1+ H (Negative) Urine Nitrite Negative (Negative) Urine Bilirubin Negative (Negative) Urine Urobilinogen Negative (Negative) Ur Leukocyte Esterase 2+ H (Negative) Urine WBC (Auto) >50 H (0-5) /hpf Urine RBC (Auto) 6-10 H (0-2) /hpf U Hyaline Cast (Auto) 6-10 H (0-2) /lpf U Epithel Cells (Auto) >20 H (0-2) /hpf Urine Bacteria (Auto) 4+ H (None Seen) Imaging Data Attestation: I personally reviewed and interpreted this imaging study as follows: MDM Narrative This patient is a 33-year-old female, currently 30 weeks who presents to the emergency department for evaluation of flank pain. Urinalysis is suggestive of infection. I suspect pyelonephritis. Patient has a significant leukocytosis of 21,000. She reports fevers at home. Her blood pressure is slightly low here and she was tachycardic on arrival. Given these findings I do recommend inpatient treatment and patient was agreeable to this. She was given IV fluids and ceftriaxone. Case was discussed with the [facility] hospitalist service, who agreed to evaluate the patient for further care. Discharge Plan Visit Data Chief Complaint: Flank Pain Stated Complaint: 30WKS PREG, FEVER, LT FLANK PAIN, SLEEPING A LOT ED Provider: Jose Alejandro [facility] ED Midlevel Provider: Deonna Morgan Forms Stand Alone Forms: [facility] Prescriptions Prescriptions: No Action nitrofurantoin monohyd/m-cryst [Macrobid] 100 mg capsule 100 mg PO DAILY 30 Days Qty: 30 5RF Hold Instructions: Home Medication placed on hold at Doctor's office Rx Instructions: must administer with a meal/food nicotine 21 mg/24 hr patch 24 hour 1 patch transdermal DAILY Qty: 28 0RF amoxicillin-pot clavulanate 875-125 mg tablet 1 tab PO BID 7 Days Qty: 14 0RF PNV cmb#95-ferrous fumarate-FA [] 28 mg iron- 800 mcg Tablet 1 tab PO DAILY Referrals Referrals: PCP,NO [Primary Care Provider] -
--- NOTE | 2023-11-01 01:39 | History & Physical Report ---
Date of Service November 01, 2023 Assessment & Plan (1) Sepsis secondary to UTI: Plan: - SIRs+ with leukocytosis and tachycardia with UTI as likely source of infection - Renal US pending-> concern for pyelonephritis given flank pain - last urine culture from 09/2023 grew E-Coli/Lactobacillus-> sensitive to ceftriaxone, plan to continue - S/p sepsis fluid resuscitation in ED-> continue NSS @125ml/hr - blood/urine cultures pending (2) Third trimester : Plan: - has been following with [facility] - plan to consult- ? if need for monitor while admitted - daily vitamin (3) Current every day smoker: Plan: - declines nicotine patch (4) Anemia during : Plan: - Hgb= 10.2, stable from 10.4 08/2023 Plan Code: Full Diet: Regular VTE Prophylaxis Lovenox Dispo: Tele History of Present Illness Primary Care Provider: NO PCP 33 year old female , currently 30 weeks - current smoker, daily marijuana use- presenting with concern for UTI. History of recurrent UTIs, has been on chronic Macrobid with this . Started with left flank pain x 4 days. Chills. Denies dysuria. One episode of bleeding after intercourse last week- has sense resolved, but otherwise no vaginal bleeding, discharge. Normal movements. ED Course Significant for: SIRs+ with WBC= 21, HR= 90s. UA with concern for UTI. S/p 2L NSS, 2g ceftriaxone Allergies Allergy/AdvReac Type Severity Reaction Status Date / Time bee venom protein (honey bee) Allergy Severe Anaphylaxis Verified 10/20/23 16:23 latex Allergy Intermediate HIVES/RASH Verified 10/20/23 16:23 Home Medications Medication Instructions Recorded Confirmed Type vit no.95-ferrous 1 tab PO DAILY 06/28/23 10/20/23 History fumarate 28 mg-folic acid 800 mcg tablet () nitrofurantoin 100 mg PO DAILY 30 days #30 caps 09/22/23 10/20/23 Rx monohydrate/macrocrystals 100 mg capsule (Macrobid) amoxicillin 875 mg-potassium 1 tab PO BID 7 days #14 tabs 10/07/23 10/20/23 Rx clavulanate 125 mg tablet nicotine 21 mg/24 hr daily 1 patch transdermal DAILY #28 ea 10/20/23 10/20/23 Rx transdermal patch Past Med/Surg History Problem List (Updated 11/01/23 @ 04:37 by Misty Kwong, DO) Pyelonephritis affecting Anemia during Third trimester Sepsis secondary to UTI Back pain affecting History of drug use heroin, cocaine, meth First trimester Current every day smoker Drug use affecting Encounter for anatomic survey Positive urine drug screen (Acute) Medical History HPV (human papilloma virus) infection Hodgkins lymphoma Tobacco dependence Acute left flank pain Pyelonephritis Lymphoma Miscarriage Surgical History H/O lymph node biopsy History of removal of Port-a-Cath Status post colposcopy Hx of dilation and curettage Family History Grandmother Cancer Mother Alcoholism Father Alcoholism Denies family history of Ovarian cancer Breast cancer Colorectal cancer Social History Smoking Status: Current every day smoker Tobacco Type: Cigarettes packs per day: 0.25; Cigarettes Per Day: 7; Second Hand Exposure: Yes; Do You Dip or Chew Tobacco: No; Tobacco Cessation Education Requested by Patient: No Hx Alcohol Use: No Hx Substance Use: Yes Non-Prescribed Medications Comment: Patient states "I used everything and anything" +UDS on 06/28/23 Last Used Substance: Hours (ago) Last Used Substance Other:: marijuana Substance Use Type Other:: has MJ card Preferred Language: Spanish Communication Ability: Effective Roller Setter Required: No Beliefs That Will Affect Care: None marital status: Single marital status details: Anastasiia Hernandez (Sister) [phone] Current Living Situation: Family Current Living Situation Comment: Sister, in law and 3 kids current occupational status: unemployed How many Children do You have: 2 Other Information That Helps Us Care for You: No Feels Safe at Home: Yes Safety Concerns: Feels Safe At This Time Assistive Devices: None Review of Systems Review of Systems: As per above Physical Exam Physical Exam: Constitutional: well-appearing, no acute distress HEENT: NCAT, no conjunctival injection CV: regular rhythm, no murmur appreciated, extremities well-perfused, no LE edema Resp: CTABL, no wheezes/rales/rhonchi appreciated, no increased work of breathing GI: nontender MSK: no gross deformities appreciated Skin: warm, dry, no rash appreciated Neuro: alert, oriented, no focal neurologic deficit appreciated Results & Data Results & Data Vital Signs (Past 12 Hours) Vital Signs Temp Pulse Pulse Resp BP BP Pulse Ox 10/31/23 23:44 88 18 97/69 L 98 10/31/23 22:00 97 H 18 99 10/31/23 20:51 36.0 C L 97 H 18 92/46 L 96 O2 Del Method 10/31/23 23:44 Room Air 10/31/23 22:00 Room Air 10/31/23 20:51 Room Air Supervising Physician Co-Signing Physician Notes Patient seen and examined, chart reviewed, case discussed with Dr. Saucedo and I agree with the assessment and plan as above Non-toxic appearing on exam, resting comfortably Pyelonephritis in -IVF -Ceftriaxone -Pain control and anti-emetics -OB consultation appreciated -Remainder as above Resident Activity Tracking Resident Involvement: Resident Care Provided Care Provided: Adult Hospital Medicine
[2023-11-01] MEDS: SODIUM CHLORIDE 0.9% 1,000 ML IV SCH (03:14)
[2023-11-01] MEDS: POTASSIUM CHLORIDE CRTAB 20 MEQ TABCR PO STA (03:59)
--- NOTE | 2023-11-01 04:35 | Billing Data ---
Date of Service November 01, 2023 Coding Level of Care Code 11765 INT INP/OBS CARE
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
--- NOTE | 2023-11-01 05:59 | Ultrasound Report ---
Exam(s): US RENAL EXAM: US Retroperitoneal Limited, Renal CLINICAL HISTORY: Reason for exam: left flank pain. TECHNIQUE: Real-time limited ultrasound of the retroperitoneum with image documentation. COMPARISON: No relevant prior studies available. FINDINGS: Right kidney: Unremarkable. No stones. No hydronephrosis. Right kidney measures 13.5 cm in length. Left kidney: 9 mm diameter cortical cyst seen in the left kidney. No stones. No hydronephrosis. Left kidney measures 13.2 cm in length. Bladder: The urinary bladder was decompressed. IMPRESSION: No hydronephrosis or nephrolithiasis Electronically signed by: Rishabh Herman MD 11/01/23 05:58 AM
[2023-11-01] MEDS: PRENATAL VITAMIN 1 TAB PO SCH (08:49)
[2023-11-01 09:06] LABS: Basophils # (auto) 0.04 K/uL (0.00-0.20); Basophils % (auto) 0.2 %; Eosinophils % (auto) 0.5 %; Hematocrit (blood only) 26.6 % (37.0-47.0); Hemoglobin 8.5 g/dl (12.0-16.0); Immature Granulocytes # (auto) 0.15 K/uL (0.01-0.20); Immature Granulocytes % (auto) 0.8 %; Lymphocytes # (auto) 2.04 K/uL (1.20-3.40); Lymphocytes % (auto) 10.9 %; Mean Corpuscular Hemoglobin 25.5 pg (25.0-34.0); Mean Corpuscular Volume 79.9 fL (80.0-100.0); Mean Platelet Volume 10.5 fL (9.4-12.4); Monocytes # (auto) 1.84 K/uL (0.11-0.59); Monocytes % (auto) 9.9 %; Neutrophils # (auto) 14.47 K/uL (1.40-6.50); Neutrophils % (auto) 77.7 %; Platelet Count 189 K/uL (130-400); RDW Coefficient of Variation 14.5 % (11.5-14.5); RDW Standard Deviation 41.9 fL (36.4-46.3); Red Blood Count 3.33 M/uL (4.20-5.40); White Blood Count 18.64 K/ul (4.8-10.8)
[2023-11-01 09:24] LABS: Alanine Aminotransferase 5 U/L (7-52); Albumin Globulin Ratio 1.1 (0.9-2); Albumin Level 3.1 gm/dl (3.4-5.0); Alkaline Phosphatase 58 U/L (34-104); Anion Gap 8 (3-11); Aspartate Aminotransferase 10 U/L (13-39); BUN Creatinine Ratio 9.5 (10-20); Bilirubin,Total 0.3 mg/dl (0.2-1.0); Blood Urea Nitrogen 4 mg/dl (6-23); Calcium 7.8 mg/dl (8.6-10.3); Carbon Dioxide 17 mmol/L (21-32); Chloride 109 mmol/L (98-107); Creatinine Clr Calc Pharmacy 211.7 ml/min; Est GFR (African American) > 150.0 ml/min; Est GFR (Non-African American) 136.6 ml/min; Globulin 2.8 gm/dl (2.5-4.0); Glucose 85 mg/dl (70-99(Fasting)); Potassium 3.6 mmol/L (3.5-5.1); Sodium 134 mmol/L (136-145); Total Protein 5.9 gm/dl (6.0-8.3)
--- NOTE | 2023-11-01 10:41 | Hospitalist Progress Note ---
Date of Service November 01, 2023 Assessment & Plan (1) Pyelonephritis: Plan: - Lt flank pain 2d hx - SIRs+ with leukocytosis and tachycardia with UA + - Renal US :(10/30) no hydronephrosis or nephrolithiasis. - Pt was on Nitrofurantoin Px for recurrent UTIs during the . - last urine culture from 09/2023 grew E-Coli/Lactobacillus-> sensitive to ceftriaxone. Plan: C/w Ceftriaxone 2grams IV Q24hr C/w IVF NS 125ml/he F/u Bl and U Cx AM labs Present on Admission?: Yes (2) Third trimester : Plan: OB onboard. NST this morning normal. - daily vitamin Present on Admission?: Yes (3) Current every day smoker: Plan: - declines nicotine patch Present on Admission?: Yes (4) Anemia during : Plan: - Hgb= 10.2, stable from 10.4 08/2023 Present on Admission?: Yes Plan Code: Full Diet: Regular VTE Prophylaxis Lovenox Dispo: Tele Admission and Anticipated Discharge Date Admission Date: November 01, 2023 Supervising Physician Co-Signing Physician Notes Attending Physician Supervision Note: I independently interviewed and examined the patient and verified the escobedo history and physical, reviewed labs and image studies and agree with findings and care plan noted above. Continuing to have left flank pain. No fever. Comfortable in bed. Pyelonephritis in - h/o recurrent uti during preg - on macrobid for suppression. WBC improving Urine cx pending. -IVF -Ceftriaxone -Pain control and anti-emetics -OB consulted - NST q shift. Tob use ds and marijuana user - Urine tox + methamphetamines and marijuana, h/o heroin and cocaine use - Nicotine patch ordered as requested. Lovenox. Subjective Pt was seen and evaluated by the bedside today. Pt lying in bed says that she still has some left flank pain 2-3/10 but denies any fevers, chills , nausea or vomiting. Pt says she feels bit better and some improvement with Antibiotics and fluids. Review of Systems Review of Systems: Constitutional: denies fever, chills. HEENT: denies congestion, sore throat Cardio: denies chest pain, palpitations Resp: denies shortness of breath, cough GI: denies abdominal pain, nausea, vomiting, constipation, diarrhea : denies pain with urination, change in urinary frequency Neuro: denies new numbness, tingling, weakness Physical Exam Physical Exam: General:Alert and oriented, in mild painful distress HEENT: Normocephalic, moist oral mucosa,no neck rigidity. Cardio: Regular rate and rhythm, no murmur, Resp:Lungs clear to auscultation b/l, no wheezes or rhonchi, GI: Soft and nontender, nondistended, bowel sounds active, Left CVA tenderness + Skin: Warm, pink, dry, Neuro: Neurology grossly intact. no neck stiffness no photophobia. Psych: Mood-affect congruence. Results & Data Results & Data Vital Signs (Past 12 Hours) Vital Signs Temp Pulse Pulse Resp BP BP Pulse Ox 11/01/23 09:35 96 H 11/01/23 09:06 11/01/23 07:17 37 C 97 H 18 101/64 95 11/01/23 02:58 103 H 11/01/23 02:50 37 C 105 H 18 99/61 L 96 11/01/23 02:12 89 16 97/60 L 98 11/01/23 01:26 10/31/23 23:44 88 18 97/69 L 98 Pulse Ox O2 Del Method O2 Del Method 11/01/23 09:35 11/01/23 09:06 Room Air 11/01/23 07:17 Room Air 11/01/23 02:58 11/01/23 02:50 Room Air 11/01/23 02:12 Room Air 11/01/23 01:26 96 Room Air 10/31/23 23:44 Room Air Resident Activity Tracking Resident Involvement: Resident Care Provided Care Provided: Adult Hospital Medicine
[2023-11-01] MEDS: NICOTINE 21 MG/24 HR TDSY TD SCH (10:58)
[2023-11-01] MEDS: ACETAMINOPHEN 500 MG TAB PO PRN (12:26)
[2023-11-01] MEDS: ENOXAPARIN INJ 40 MG/0.4 ML SYR SQ SCH (15:12)
[2023-11-01] MEDS: PANTOprazole 40 MG TAB PO SCH (16:40)
[2023-11-01] MEDS: cefTRIAXone SODIUM 2,000 MG/50 ML BAG IV SCH (21:46)
[2023-11-01] MEDS: HYDROmorphone INJ 0.5 MG/0.5 ML SYR IV ONE (22:50)
[2023-11-01] MEDS: LIDOCAINE 5% 1 PATCH TD STA (23:12)
[2023-11-02] MEDS: ACETAMINOPHEN 1,000 MG/100 ML VIAL IV PRN (02:32)
--- NOTE | 2023-11-02 07:28 | Obstetrical Progress Note ---
Date of Service November 02, 2023 Assessment & Plan (1) Pyelonephritis affecting : Plan: WBC still elevated and she still is having pain. Continue IV ab's for at least 24 hours more. Contact OB if CTX Admission and Anticipated Discharge Date Admission Date: November 01, 2023 Subjective still having pain Results & Data Vital Signs (Past 12 Hours) Vital Signs Temp Pulse Pulse Resp BP Pulse Ox O2 Del Method 11/02/23 03:12 18 11/02/23 02:40 97.9 F 98 H 16 100/65 93 Room Air 11/02/23 00:21 102 H 11/01/23 22:49 98.4 F 98 H 18 102/66 96 Room Air PG Care Time/CCT Total # of Minutes Spent Total Time Spent with Patient: Total time spent is greater than 50% in coordination of care (as documented) at patient's floor/unit and/or counseling patient: Coding Level of Care Code 58684 OP VST EST LOW 20 MIN Diagnoses Pyelonephritis affecting O23.00
[2023-11-02 11:44] LABS: Basophils # (auto) 0.04 K/uL (0.00-0.20); Basophils % (auto) 0.3 %; Eosinophils # (auto) 0.15 K/uL (0.00-0.50); Eosinophils % (auto) 1.1 %; Hematocrit (blood only) 27.2 % (37.0-47.0); Hemoglobin 8.7 g/dl (12.0-16.0); Immature Granulocytes # (auto) 0.09 K/uL (0.01-0.20); Immature Granulocytes % (auto) 0.7 %; Lymphocytes # (auto) 1.59 K/uL (1.20-3.40); Lymphocytes % (auto) 12.1 %; Mean Corpuscular Hemoglobin 25.8 pg (25.0-34.0); Mean Corpuscular Volume 80.7 fL (80.0-100.0); Mean Platelet Volume 10.8 fL (9.4-12.4); Monocytes # (auto) 1.08 K/uL (0.11-0.59); Monocytes % (auto) 8.2 %; Neutrophils # (auto) 10.21 K/uL (1.40-6.50); Neutrophils % (auto) 77.6 %; Platelet Count 198 K/uL (130-400); RDW Coefficient of Variation 14.6 % (11.5-14.5); RDW Standard Deviation 42.7 fL (36.4-46.3); Red Blood Count 3.37 M/uL (4.20-5.40); White Blood Count 13.16 K/ul (4.8-10.8)
[2023-11-02 12:00] LABS: Alanine Aminotransferase 5 U/L (7-52); Albumin Level 3.1 gm/dl (3.4-5.0); Alkaline Phosphatase 63 U/L (34-104); Anion Gap 9 (3-11); Aspartate Aminotransferase 10 U/L (13-39); BUN Creatinine Ratio 8.1 (10-20); Bilirubin,Total 0.2 mg/dl (0.2-1.0); Blood Urea Nitrogen 3 mg/dl (6-23); Calcium 8.1 mg/dl (8.6-10.3); Carbon Dioxide 19 mmol/L (21-32); Chloride 109 mmol/L (98-107); Creatinine Clr Calc Pharmacy 240.3 ml/min; Est GFR (African American) > 150.0 ml/min; Est GFR (Non-African American) 142.4 ml/min; Globulin 3.1 gm/dl (2.5-4.0); Glucose 80 mg/dl (70-99(Fasting)); Potassium 3.6 mmol/L (3.5-5.1); Sodium 137 mmol/L (136-145); Total Protein 6.2 gm/dl (6.0-8.3)
--- NOTE | 2023-11-02 15:13 | Hospitalist Progress Note ---
Date of Service November 02, 2023 Assessment & Plan (1) Pyelonephritis: Plan: - Lt flank pain 2d hx - SIRs+ with leukocytosis and tachycardia with UA + - Renal US :(10/30) no hydronephrosis or nephrolithiasis. - Pt was on Nitrofurantoin Px for recurrent UTIs during the . - last urine culture from 09/2023 grew E-Coli/Lactobacillus-> sensitive to ceftriaxone. 10/30 urine Cx Gardnerella bacilli +, Bl cx no growth so far. WCC improving. Plan: C/w Ceftriaxone 2grams IV Q24hr C/w IVF NS 125ml/hr F/u Bl and U Cx /s AM labs Present on Admission?: Yes (2) Third trimester : Plan: OB onboard. NST normal. c/w daily vitamin Present on Admission?: Yes (3) Current every day smoker: Plan: - declines nicotine patch (4) Anemia during : Plan: - Hgb= 10.2, stable from 10.4 08/2023 Plan Code: Full Diet: Regular VTE Prophylaxis Lovenox Dispo: Tele Admission and Anticipated Discharge Date Admission Date: November 01, 2023 Supervising Physician Co-Signing Physician Notes Attending Physician Supervision Note: I independently interviewed and examined the patient and verified the escobedo history and physical, reviewed labs and image studies and agree with findings and care plan noted above. Continuing with left flank pain. No fever. Comfortable in bed. Pyelonephritis in - h/o recurrent uti during preg - on macrobid for suppression. WBC improving - now 13k Blood and Urine cx - no growth. -IVF -Ceftriaxone for 24 hours then transition to PO. -Pain control and anti-emetics -OB consulted - NST q shift. Tob use ds and marijuana user - Urine tox + methamphetamines and marijuana, h/o heroin and cocaine use - Nicotine patch ordered as requested. Lovenox. Subjective c/o Lt flank pain and nauseous. pt on Tylenol and lidocaine patch. Denies no fevers or chills. Review of Systems Review of Systems: Constitutional: denies fever, chills, HEENT: denies congestion, sore throat Cardio: denies chest pain, palpitations Resp: denies shortness of breath, cough GI: denies abdominal pain, vomiting, constipation, diarrhea. nausea + : denies pain with urination, change in urinary frequency Neuro: denies new numbness, tingling, weakness Physical Exam Physical Exam: General:Alert and oriented, in painful distress HEENT: Normocephalic, moist oral mucosa,no neck rigidity. Cardio: Regular rate and rhythm, no murmur, Resp:Lungs clear to auscultation b/l, no wheezes or rhonchi, GI: Soft and nontender, nondistended, bowel sounds active, Left CVA tenderness +(lidocaine patch on) Skin: Warm, pink, dry, Neuro: Neurology grossly intact. no neck stiffness no photophobia. Psych: Mood-affect congruence. Results & Data Results & Data Vital Signs (Past 12 Hours) Vital Signs Temp Pulse Pulse Resp BP Pulse Ox O2 Del Method 11/02/23 11:19 36.6 C 102 H 20 105/71 98 Room Air 11/02/23 07:52 Room Air 11/02/23 07:29 87 11/02/23 07:27 36.8 C 87 19 96/55 L 96 Room Air 11/02/23 03:12 18 Resident Activity Tracking Resident Involvement: Resident Care Provided Care Provided: Adult Hospital Medicine
[2023-11-02 15:30] VITALS: RESP 18
[2023-11-02 19:55] VITALS: BP 87/58; PULSE 102; TEMP 98.1; O2SAT 98
--- NOTE | 2023-11-02 21:26 | Communication Note ---
Date of Service: November 02, 2023 Pt left AMA. Prior to leaving discussed risk of worsening of infection that could lead to both maternal/ demise. Pt states that she understands risk and still wants to leave. Received Ceftriaxone prior to leaving at 2100. Will sign-out to day team to follow-up with further antibiotic plan.
--- NOTE | 2023-11-03 17:07 | Discharge Summary ---
Date of Service November 03, 2023 Admission HPI Per Admitting Provider 33 year old female , currently 30 weeks - current smoker, daily marijuana use- presenting with concern for UTI. History of recurrent UTIs, has been on chronic Macrobid with this . Started with left flank pain x 4 days. Chills. Denies dysuria. One episode of bleeding after intercourse last week- has sense resolved, but otherwise no vaginal bleeding, discharge. Normal movements. ED Course Significant for: SIRs+ with WBC= 21, HR= 90s. UA with concern for UTI. S/p 2L NSS, 2g ceftriaxone Admission Exam Per Admitting Provider Constitutional: well-appearing, no acute distress HEENT: NCAT, no conjunctival injection CV: regular rhythm, no murmur appreciated, extremities well-perfused, no LE edema Resp: CTABL, no wheezes/rales/rhonchi appreciated, no increased work of breathing GI: nontender, Lt CVA tenderness+++ MSK: no gross deformities appreciated Skin: warm, dry, no rash appreciated Neuro: alert, oriented, no focal neurologic deficit appreciated Principal Diagnosis Pyelonephritis Discharge Exam General:Alert and oriented, in painful distress HEENT: Normocephalic, moist oral mucosa,no neck rigidity. Cardio: Regular rate and rhythm, no murmur, Resp:Lungs clear to auscultation b/l, no wheezes or rhonchi, GI: Soft and nontender, nondistended, bowel sounds active, Left CVA tenderness + Skin: Warm, pink, dry, Neuro: Neurology grossly intact. no neck stiffness no photophobia. Psych: Mood-affect congruence. Discharge Data Allergies Allergy/AdvReac Type Severity Reaction Status Date / Time bee venom protein (honey bee) Allergy Severe Anaphylaxis Verified 10/20/23 16:23 latex Allergy Intermediate HIVES/RASH Verified 10/20/23 16:23 Consultations 11/01/23 01:28 ED Decision to Admit Stat 11/01/23 01:45 Consult Obstetrics Routine Ordered Studies 10/31/23 21:36 US Renal Bladder [US renal/blad retro comp] Stat : No hydronephrosis or nephrolithiasis Hospital Course (1) Pyelonephritis: - Lt flank pain 2d hx - SIRs+ with leukocytosis and tachycardia with UA + - Renal US :(10/30) no hydronephrosis or nephrolithiasis. - 10/30 urine Cx Gardnerella bacilli pt left AMA after the 3 doses of ceftriaxone 2grams IV. Advise Complete PO cefdinir 300mg BID for 10 days, phoned and informed patient (11/02/2023) Advised to f/u with her PCP If any acute worsening of symptoms advised to got to ER (2) Third trimester : OB f/u while an inpatient NST normal. advised to f/u with her PCP. (3) Current every day smoker: - declined nicotine patch (4) Anemia during : - Hgb= 10.2, stable from 10.4 08/2023 f/u with PCP Plan Pt left AMA PO Cefdinir sent to pts pharmacy - telephoned patient and informed. Total Time Total Time Spent Total Time Spent (In Minutes): as per attending entry Discharge Plan Discharge Items Patient Disposition: Against Medical Advice Reason For Visit: Pyelonephritis Condition on Discharge: Fair Activity: Per Instructions section Non-emergency contact: Primary Care Provider Follow-up/Referrals: PCP,NO [Primary Care Provider] - Pending Studies at Discharge: No Stand-Alone Forms: [id number], Smoking Cessation Medications and DC Order Prescriptions: New cefdinir 300 mg capsule 300 mg PO BID 10 Days Qty: 20 0RF Continued nicotine 21 mg/24 hr patch 24 hour 1 patch transdermal DAILY Qty: 28 0RF PNV cmb#95-ferrous fumarate-FA [] 28 mg iron- 800 mcg Tablet 1 tab PO DAILY Held nitrofurantoin monohyd/m-cryst [Macrobid] 100 mg capsule 100 mg PO DAILY 30 Days Qty: 30 5RF Hold Instructions: Home Medication placed on hold at Doctor's office Rx Instructions: must administer with a meal/food Discontinued amoxicillin-pot clavulanate 875-125 mg tablet 1 tab PO BID 7 Days Qty: 14 0RF Discharge Orders: Left Against Medical Advice (Routine); Ordered 11/02/23 Ordered By: Janine Saucedo Admission Data Admit Date/Time: 11/01/23 01:26 Attending Provider: Mago Herman Admit Provider: Janine Saucedo Primary Care Provider: PCP,NO Other Providers: Misty Kwong; Kassidy Carmona Supervising Physician Co-Signing Physician Notes Attending Physician Supervision Note: I independently interviewed and examined the patient and verified the escobedo history and physical, reviewed labs and image studies and agree with findings and care plan noted above. Left AMA last night Pyelonephritis in - h/o recurrent uti during preg - on macrobid for suppression. WBC 20K on admission with left flank pain. No fever. Treated with IV ceftriaxone. WBC improved to 13k Blood and Urine cx - no growth. Received IVF, pain control and anti-emetics -OB consulted - NST q shift. Rx of cefdinir was sent to the pharmacy and patient was notified. Tob use ds and marijuana user - Urine tox + methamphetamines and marijuana, h/o heroin and cocaine use - Nicotine patch was ordered
== END 2023-11-02 22:19 | disposition left against medical advice (07) | DRG 831 ==
LOC: ED 20:34 → 2N 11-01 01:26 → SUATTDRO 11-01 01:26 → 2N 11-01 02:53
DX: F17.210 Nicotine dependence, cigarettes, uncomplicated; O98.813 Other maternal infectious and parasitic diseases complicating pregnancy, third trimester; O99.323 Drug use complicating pregnancy, third trimester; O99.013 Anemia complicating pregnancy, third trimester; F12.90 Cannabis use, unspecified, uncomplicated; Z91.040 Latex allergy status; O23.03 Infections of kidney in pregnancy, third trimester; A41.9 Sepsis, unspecified organism; Z3A.30 30 weeks gestation of pregnancy; N12 Tubulo-interstitial nephritis, not specified as acute or chronic; O99.333 Smoking (tobacco) complicating pregnancy, third trimester; Z87.440 Personal history of urinary (tract) infections

== ENCOUNTER 2024-01-16 10:21 | Inpatient (IN) ==
[2024-01-16] MEDS ORDERED: CALCIUM CARBONATE 500 MG CHEWABLE TAB PO PRN (19:30)
[2024-01-16] MEDS ORDERED: LIDOCAINE 1% LOCAL 20 ML VIAL INFIL PRN (19:30)
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
[2024-01-16 20:15] LABS: Amphetamines+Metham, Urine Neg (Neg); Barbiturates, Urine Neg (Neg); Benzodiazepine, Urine Neg (Neg); Cocaine, Urine Neg (Neg); Fentanyl, Urine Neg (Neg); MDMA (Ecstacy), Urine Neg (Neg); Marijuana, Urine Pos (Neg); Methadone, Urine Neg (Neg); Opiate, Urine Neg (Neg); Phencyclidine, Urine Neg (Neg)
[2024-01-16 20:49] LABS: Hematocrit (blood only) 33.9 % (37.0-47.0); Mean Corpuscular Hemoglobin 27.2 pg (25.0-34.0); Mean Corpuscular Hgb Conc 32.4 g/dL (32.0-36.0); Mean Corpuscular Volume 83.9 fL (80.0-100.0); Mean Platelet Volume 11.1 fL (9.4-12.4); Platelet Count 247 K/uL (130-400); RDW Coefficient of Variation 22.2 % (11.5-14.5); RDW Standard Deviation 66.5 fL (36.4-46.3); Red Blood Count 4.04 M/uL (4.20-5.40); White Blood Count 13.15 K/ul (4.8-10.8)
[2024-01-16] MEDS: LACTATED RINGER'S 1,000 ML IV SCH (21:13)
[2024-01-16] MEDS: OXYTOCIN 30 UNITS/NSS 30 UNITS/500 ML BAG IV PRN (21:14)
[2024-01-16] MEDS: BUPIVACAINE 0.25% PF 30 ML VIAL ONE (23:05)
[2024-01-16] MEDS: SODIUM CHLORIDE 0.9% PF INJ 10 ML VIAL ONE (23:05)
[2024-01-16] MEDS: LIDOCAINE 2%/EPINEPHRINE 1:200,000 20 ML PF ONE (23:05)
[2024-01-16] MEDS: fentANYL 2 MCG/ML BUPIVacaine 0.125%-NSS 100ML BAG ONE (23:07)
[2024-01-16] MEDS ORDERED: diphenhydrAMINE 50 MG/ML VIAL IV PRN (23:13)
[2024-01-16] MEDS ORDERED: NALOXONE HCL 0.4 MG/1 ML VIAL/CARP IV PRN (23:13)
[2024-01-16] MEDS ORDERED: NALOXONE HCL 1 MG in SODIUM CHLORIDE 0.9% 1,000 ML IV PRN (23:13)
[2024-01-16] MEDS ORDERED: LIDOCAINE 2%/EPINEPHRINE 1:200,000 20 ML PF EPI STA (23:13)
[2024-01-16] MEDS ORDERED: PROMETHAZINE 6.25 MG/50.25 ML BAG IV PRN (23:13)
[2024-01-16] MEDS ORDERED: ePHEDrine sulfate 50 MG/ML AMP IV PRN (23:13)
[2024-01-16] MEDS ORDERED: NALBUPHINE HCL INJ 10 MG/ML AMP IV PRN (23:13)
[2024-01-16] MEDS ORDERED: SODIUM CHLORIDE 0.9% PF INJ 10 ML VIAL EPI PRN (23:13)
[2024-01-16] MEDS ORDERED: LIDOCAINE 2% MPF LOCAL 5 ML VIAL EPI PRN (23:13)
[2024-01-16] MEDS ORDERED: ROPIVACAINE 0.5% PF 5 MG/ML 20 ML VIAL EPI PRN (23:13)
[2024-01-16] MEDS ORDERED: fentaNYL citrate PF 100 MCG/2 ML VIAL EPI STA (23:13)
[2024-01-16] MEDS ORDERED: ONDANSETRON INJ 2 MG/ML 2 ML VIAL IV PRN (23:13)
[2024-01-16] MEDS ORDERED: BUPIVACAINE 0.25% PF 30 ML VIAL EPI PRN (23:13)
[2024-01-16] MEDS ORDERED: fentaNYL citrate PF 100 MCG/2 ML VIAL EPI PRN (23:13)
--- NOTE | 2024-01-16 23:13 | Anesthesiology Consultation ---
Date of Service January 16, 2024 Assessment & Plan Chart Review Chart Review: Patient NOT seen in Pre Admission Testing and Acceptable Risk for Labor Epidural Consults Requested none ASA ASA2 Proposed Anesthesia Anesthesia Type: Labor Epidural Risk / Benefits Reviewed With: PT / POA / Parent / Guardian, Accepts Plan and Informed Consent Obtained History Height/Weight Height: 5 ft 4 in Weight: 93.416 kg Allergies Allergy/AdvReac Type Severity Reaction Status Date / Time bee venom protein (honey bee) Allergy Severe Anaphylaxis Verified 01/10/24 14:58 latex Allergy Intermediate HIVES/RASH Verified 01/10/24 14:58 Medications Home Medications Medication Instructions Recorded Confirmed Last Taken vit no.95-ferrous 1 tab PO DAILY 06/28/23 01/10/24 09/15/23 09:00 fumarate 28 mg-folic acid 800 mcg tablet () iron 1 tab PO DAILY 11/29/23 01/10/24 Unknown Active Medications Generic Name Dose Route Start Last Admin Trade Name Freq PRN Reason Stop Dose Admin Oxytocin 30 units in 500 mls @ 4 mls/hr 01/16/24 19:30 01/16/24 22:00 Pitocin 30 Units/Nss IV 01/18/24 19:29 0.24 units/hr .Q24H PRN 4 mls/hr Labor Induction/Augmentation Titration Protocol 0.24 UNITS/HR Lactated Ringer's 1,000 mls @ 125 mls/hr 01/16/24 21:15 01/16/24 21:32 Lr IV 01/17/24 21:14 999 mls/hr .Q8H AMISH Infusion Past Medical History Medical History HPV (human papilloma virus) infection Hodgkins lymphoma Tobacco dependence Acute left flank pain Pyelonephritis Lymphoma Miscarriage Exercise / Class Metabolic Activity II 4-5 Yardwork/Stairs/Walk up hill Past Family History Family History Grandmother Cancer Mother Alcoholism Father Alcoholism Denies family history of Ovarian cancer Breast cancer Colorectal cancer Past Surgical History Surgical History H/O lymph node biopsy History of removal of Port-a-Cath Status post colposcopy Hx of dilation and curettage Past Anesthesia History No Hx of Anesthesia Complications and No Family Hx of Anesthesia Complications History of PONV No Hx of PONV and No Hx of Motion Sickness Social History Smoking Status: Current every day smoker Smoking cigarettes per day: 0.5 Do You Dip or Chew Tobacco: No Hx Alcohol Use: No Alcohol Intake Frequency Comment: past hx of abuse Hx Substance Use: Yes substance use type: marijuana, crack/cocaine and heroin Substance Use Type Other:: has [facility] card Last Used Substance: Hours (ago) Last Used Substance Other:: 2021 last use Physical Exam Vital Signs Last Vital Signs Temp 37.4 C 01/16/24 19:51 Pulse 93 H 01/16/24 23:10 Resp 18 01/16/24 19:06 BP 126/65 01/16/24 23:10 Pulse Ox 95 01/16/24 23:09 ENMT Mouth: no dentition abnormality Thyromental Distance: > or= 3.5 Finger Breadths Mallampati Class: II Neck normal visual inspection Respiratory normal respiratory effort Auscultation: lungs clear to auscultation bilaterally Cardiovascular Rate/Rhythm: regular rate and regular rhythm Psychiatric Orientation: alert Testing Laboratory Results 01/16/24 20:32 Blood Type A Positive 01/16/24 20:32 Antibody Screen NEGATIVE 01/16/24 20:32
[2024-01-16] MEDS: ePHEDrine sulfate 50 MG/ML AMP ONE (23:19)
[2024-01-16] MEDS: fentaNYL citrate PF 100 MCG/2 ML VIAL ONE (23:19)
[2024-01-17] MEDS: BUPIVACAINE 0.25% PF 30 ML VIAL EPI STA (04:11)
[2024-01-17] MEDS: SODIUM CHLORIDE 0.9% PF INJ 10 ML VIAL EPI STA (04:11)
[2024-01-17] MEDS: fentANYL 2 MCG/ML BUPIVacaine 0.125%-NSS 100ML BAG EPI PRN (07:50)
--- NOTE | 2024-01-17 10:19 | Labor Progress Brief Note ---
Date of Service January 17, 2024 Subjective Introduced myself as taking over from call. Recently became complete and now started pushing Assessment & Plan (1) Anemia during : Plan: 33 yo at 41 3/7 wga admitted for late term iol VSS Fetus cat 2 with pushing but reassuring, cat 1 prior Labor - good pushing effort w/ epidural, never had epidural with other deliveries (2) Third trimester : (3) History of drug use: (4) Drug use affecting : Trimester: third trimester Qualified Code(s): O99.323 - Drug use complicating , third trimester (5) Encounter for induction of labor: Admission and Anticipated Discharge Date Admission Date: January 16, 2024 Physical Exam Genitourinary: EFM 150s/mod/+accel/variables w/ pushing but good recovery [place] q2-4 Results & Data Vital Signs (Past 12 Hours) Vital Signs Temp Pulse Resp BP Pulse Ox 01/17/24 10:14 96 H 97 01/17/24 10:12 99 H 114/55 L 01/17/24 10:09 98 H 98 01/17/24 10:05 88 92 01/17/24 10:04 100 H 98 01/17/24 10:00 112 H 88 L 01/17/24 09:59 108 H 98 01/17/24 09:54 103 H 99 01/17/24 09:49 105 H 100 01/17/24 09:44 97 H 100 01/17/24 09:43 113 H 91 01/17/24 09:39 107 H 99 01/17/24 09:34 101 H 100 01/17/24 09:30 102 H 86 L 01/17/24 09:29 101 H 98 01/17/24 09:24 91 H 100 01/17/24 09:19 90 100 01/17/24 09:17 96 H 115/78 01/17/24 09:15 97 H 93 01/17/24 09:14 111 H 97 01/17/24 09:09 88 98 01/17/24 09:04 98 H 93 01/17/24 09:03 93 H 117/83 01/17/24 09:02 94 H 94 01/17/24 08:59 93 H 100 01/17/24 08:54 91 H 100 01/17/24 08:49 99 H 100 01/17/24 08:48 93 H 118/61 01/17/24 08:45 97 H 91 01/17/24 08:44 96 H 98 01/17/24 08:39 88 100 01/17/24 08:34 87 97 01/17/24 08:33 85 111/66 01/17/24 08:29 91 H 98 01/17/24 08:24 91 H 97 01/17/24 08:19 92 H 95/63 L 97 01/17/24 08:14 87 96 01/17/24 08:09 93 H 97 01/17/24 08:04 98 H 98 01/17/24 08:03 91 H 94 01/17/24 08:02 91 H 104/59 L 01/17/24 07:59 94 H 95 01/17/24 07:54 92 H 97 01/17/24 07:49 93 H 114/66 95 01/17/24 07:44 96 H 98 01/17/24 07:39 93 H 97 01/17/24 07:34 97 H 122/67 98 01/17/24 07:29 97 H 97 01/17/24 07:24 96 H 98 01/17/24 07:19 94 H 98 01/17/24 07:18 86 119/66 01/17/24 07:16 98.4 F 20 01/17/24 07:14 93 H 97 01/17/24 07:09 94 H 97 01/17/24 07:06 92 H 94 01/17/24 07:04 99 H 95 01/17/24 07:03 90 109/67 01/17/24 06:59 92 H 94 01/17/24 06:54 88 95 01/17/24 06:49 87 95 01/17/24 06:48 85 107/63 94 01/17/24 06:44 88 95 01/17/24 06:40 84 94 01/17/24 06:39 83 94 01/17/24 06:34 93 01/17/24 06:34 82 01/17/24 06:34 83 94 01/17/24 06:33 80 114/61 01/17/24 06:29 93 01/17/24 06:29 86 01/17/24 06:29 83 94 01/17/24 06:24 87 92 01/17/24 06:19 83 92 01/17/24 06:17 90 119/67 01/17/24 06:14 88 91 01/17/24 06:09 86 92 01/17/24 06:08 90 94 01/17/24 06:04 88 93 01/17/24 06:03 84 107/62 01/17/24 05:59 82 92 01/17/24 05:54 89 92 01/17/24 05:49 82 92 01/17/24 05:48 82 101/62 01/17/24 05:44 82 93 01/17/24 05:40 83 94 01/17/24 05:39 98 H 94 01/17/24 05:35 18 01/17/24 05:35 98.1 F 18 01/17/24 05:34 97 H 95 01/17/24 05:33 99 H 112/76 01/17/24 05:29 83 94 01/17/24 05:27 85 94 01/17/24 05:24 84 95 01/17/24 05:19 80 95 01/17/24 05:17 81 93/52 L 01/17/24 05:14 84 95 01/17/24 05:09 79 95 01/17/24 05:04 78 95 01/17/24 05:03 76 90/55 L 01/17/24 04:59 85 96 01/17/24 04:54 79 95 01/17/24 04:53 80 94 01/17/24 04:49 79 94 01/17/24 04:47 81 88/51 L 01/17/24 04:46 78 94 01/17/24 04:44 79 95 01/17/24 04:39 85 94 01/17/24 04:34 87 95 01/17/24 04:32 81 88/55 L 01/17/24 04:29 81 95 01/17/24 04:26 80 94 01/17/24 04:24 78 95 01/17/24 04:21 82 94 01/17/24 04:19 79 95 01/17/24 04:17 79 86/53 L 01/17/24 04:14 77 95 01/17/24 04:13 78 94 01/17/24 04:09 79 94 01/17/24 04:08 79 94 01/17/24 04:04 79 94 01/17/24 04:03 78 94/53 L 01/17/24 04:02 77 94 01/17/24 03:59 78 93 01/17/24 03:54 77 94 01/17/24 03:49 79 93 01/17/24 03:47 79 90/52 L 01/17/24 03:44 77 93 01/17/24 03:42 79 94 01/17/24 03:39 78 93 01/17/24 03:34 76 90/51 L 93 01/17/24 03:29 78 93 01/17/24 03:24 79 93 01/17/24 03:21 80 94 01/17/24 03:19 77 92 01/17/24 03:18 78 85/54 L 01/17/24 03:14 78 93 01/17/24 03:09 93 01/17/24 03:09 80 01/17/24 03:09 80 94 01/17/24 03:04 79 92 01/17/24 03:02 76 87/51 L 01/17/24 02:59 79 93 01/17/24 02:54 80 92 01/17/24 02:49 79 92 01/17/24 02:48 78 91/50 L 01/17/24 02:44 81 91 01/17/24 02:39 83 94 01/17/24 02:37 85 93 01/17/24 02:35 85 84/52 L 01/17/24 02:34 84 93 01/17/24 02:33 83 84/49 L 01/17/24 02:32 87 94 01/17/24 02:29 84 94 01/17/24 02:27 83 94 01/17/24 02:24 86 94 01/17/24 02:20 84 94 01/17/24 02:19 81 95 01/17/24 02:18 80 108/68 01/17/24 02:15 87 93 01/17/24 02:14 86 95 01/17/24 02:10 98.6 F 01/17/24 02:09 92 H 96 01/17/24 02:08 92 H 94 01/17/24 02:04 89 95 01/17/24 02:03 85 94 01/17/24 01:59 99 H 97 01/17/24 01:57 85 94 01/17/24 01:54 85 94 01/17/24 01:52 82 94 01/17/24 01:49 84 94 01/17/24 01:47 82 102/56 L 01/17/24 01:44 84 94 01/17/24 01:39 95 01/17/24 01:39 85 01/17/24 01:39 85 94 01/17/24 01:34 83 100/60 95 01/17/24 01:29 79 95 01/17/24 01:24 84 95 01/17/24 01:19 83 96 01/17/24 01:18 82 103/62 01/17/24 01:14 80 96 01/17/24 01:09 84 96 01/17/24 01:04 82 96 01/17/24 01:03 80 102/59 L 01/17/24 00:59 81 96 01/17/24 00:54 85 96 01/17/24 00:50 85 94 01/17/24 00:49 83 95 01/17/24 00:47 85 101/59 L 01/17/24 00:44 86 95 01/17/24 00:39 81 95 01/17/24 00:37 18 01/17/24 00:37 98.8 F 18 01/17/24 00:34 82 94 01/17/24 00:32 83 91/55 L 01/17/24 00:30 85 94 01/17/24 00:29 86 94 01/17/24 00:24 84 94 01/17/24 00:19 87 94/51 L 94 01/17/24 00:18 82 94 01/17/24 00:14 83 94 01/17/24 00:09 85 94 01/17/24 00:04 87 95 01/17/24 00:03 96 H 94 01/17/24 00:02 90 100/63 01/16/24 23:59 93 01/16/24 23:59 87 01/16/24 23:54 94 01/16/24 23:54 83 01/16/24 23:49 94 01/16/24 23:49 86 01/16/24 23:48 94 01/16/24 23:48 90 01/16/24 23:47 88 01/16/24 23:47 93/57 L 01/16/24 23:44 94 01/16/24 23:44 84 01/16/24 23:39 94 01/16/24 23:39 92 H 01/16/24 23:35 94 01/16/24 23:35 93 H 01/16/24 23:34 94 01/16/24 23:34 94 H 01/16/24 23:34 89 01/16/24 23:34 98/59 L 01/16/24 23:29 94 01/16/24 23:29 91 H 01/16/24 23:28 94 01/16/24 23:28 89 01/16/24 23:24 96 01/16/24 23:24 96 H 01/16/24 23:19 96 01/16/24 23:19 95 H 01/16/24 23:18 94 01/16/24 23:18 94 H 01/16/24 23:16 94 H 01/16/24 23:16 124/65 01/16/24 23:14 96 01/16/24 23:14 91 H 01/16/24 23:14 86 01/16/24 23:14 125/62 01/16/24 23:12 110 H 01/16/24 23:12 135/64 01/16/24 23:10 93 H 01/16/24 23:10 126/65 01/16/24 23:09 95 01/16/24 23:09 96 H 01/16/24 23:08 96 H 01/16/24 23:08 132/64 01/16/24 23:06 93 H 01/16/24 23:06 156/69 H 01/16/24 23:05 103 H 01/16/24 23:05 161/94 H 01/16/24 23:04 96 01/16/24 23:04 102 H 01/16/24 23:02 90 01/16/24 23:02 125 H 01/16/24 22:59 97 01/16/24 22:59 106 H 01/16/24 22:56 92 01/16/24 22:56 95 H 01/16/24 22:54 97 01/16/24 22:54 96 H 01/16/24 22:49 96 01/16/24 22:49 92 H 01/16/24 22:46 89 01/16/24 22:46 123/75 01/16/24 22:44 96 01/16/24 22:44 88 01/16/24 22:39 98 01/16/24 22:39 98 H Coding Level of Care Code None Diagnoses Anemia during O99.019 Third trimester Z34.93 History of drug use F19.91 Drug use affecting in third trimester O99.323 Trimester: third trimester Encounter for induction of labor Z34.90
[2024-01-17] MEDS: OXYTOCIN 30 UNITS/NSS 30 UNITS/500 ML BAG IV PRN (12:29)
--- NOTE | 2024-01-17 12:32 | Delivery Summary ---
Vaginal Delivery Summary Date of Service January 17, 2024 Vaginal Delivery Summary PREOPERATIVE DIAGNOSIS: 1. Single intrauterine at 41 3/7 wga 2. Anemia in 3. Marijuana use POSTOPERATIVE DIAGNOSIS: 1. Single intrauterine at 41 3/7 wga 2. Anemia in 3. Marijuana use 4. Shoulder dystocia 5. Delivered PROCEDURE: 1. Spontaneous vaginal delivery. SURGEON: Kirti Hawk MD ANESTHESIA: Epidural. QUANTITATIVE BLOOD LOSS: 320 mL FLUIDS: Continuous LR. URINE OUTPUT: 100cc by straight cath after procedure CONDITION: Stable. INDICATIONS: 33 yo at 41 3/7 wga presented for late term IOL last evening. She was started on pitocin and underwent srom. She received an epidural for pain control and progressed to complete and desired to push FINDINGS: A viable female , weight 9lbs 3oz with Apgars of 3 and 10 at 1 and 5 minutes respectively. SPECIMEN: Cord blood, cord gases OPERATIVE REPORT: The patient progressed to 10 cm, 100% effaced and +2 station, pushed over intact perineum with anesthesia to deliver a viable female , weight and Apgars as above. Head of delivered in SANDRA position. No nuchal cord was present. Body and shoulders did not deliver easily with gentle downward traction. Shoulder dystocia was called. Head of bed was lowered, hips were placed in Jada maneuver and suprapubic pressure was performed while pt was instructed to stop pushing however anterior shoulder did not deliver. Attempt to deliver the posterior arm was unsuccessful due to position. Rotational maneuvers were employed clockwise and counterclockwise without success. Posterior shoulder shrug was then performed which allowed for anterior shoulder to release and deliver. Remainder of body was then delivered. Total shoulder dystocia time was 3 minutes. Delayed cord clamping was deferred, cord was i mmediately clamped and cut and infant immediately delivered to awaiting nursery team. Cord segment and blood were obtained. Placenta delivered spontaneously intact with 3-vessel cord. IV oxytocin and fundal massage were given for excellent hemostasis. Vagina, cervix, perineum, and placenta were inspected. Left labial laceration was repaired using 4-0 vicryl in interrupted stitches. Hemostatic periclitoral abrasion did not need repair. There was excellent hemostasis. Sponge and needle counts correct x2. No sponges were left behind. Mother and stable in immediate period. Mother and support persons were debriefed at conclusion of repair, questions answered to apparent satisfaction. [facility] Vaginal Delivery Charge Vaginal Delivery Codes: 17809 global code for the antepartum, delivery, and post- Delivery Type Details:
[2024-01-17] MEDS ORDERED: bisacodyL 10 MG SUPP PR PRN (12:41)
[2024-01-17] MEDS ORDERED: OXYTOCIN 30 UNITS/NSS 30 UNITS/500 ML BAG IV SCH (12:41)
[2024-01-17] MEDS ORDERED: HYDROCORTISONE ACETATE 25 MG SUPP PR PRN (12:41)
[2024-01-17] MEDS ORDERED: ACETAMINOPHEN 325 MG TAB PO PRN (12:41)
[2024-01-17] MEDS ORDERED: DIPHTHER/TETAN/PERTUS Vaccine (Tdap, Adol/Adult) 0.5mL IM ONE (12:41)
[2024-01-17] MEDS: ACETAMINOPHEN 500 MG TAB PO PRN (12:43)
[2024-01-17] MEDS: IBUPROFEN 600 MG TAB PO PRN (12:57)
[2024-01-17 13:07] LABS: Base Excess Cord Arterial Bld -5.4 mEq/L (-9-1.8); Base Excess Cord Venous Blood -4.2 mEq/L (-7.7-1.9); CO2 Cord Arterial Blood 62 mmHg (39.1-73.5); Cord Venous Blood HCO3 20 mmol/L (18.4-26.8); Cord Venous Blood PCO2 35 mmHg (30.4-57.2); Cord Venous Blood PO2 42 mmHg (14.1-43.3); Cord Venous Blood pH 7.37 (7.20-7.44); HCO3 Cord Arterial Blood 24 mmol/L (19.7-28.5); O2 Saturation Cord Venous Bld 81.4 % (<68); Oxygen Sat Cord Arterial Blood < 60.0 % (<60); PO2 Cord Arterial Blood 24 mmHg (4.1-31.7)
--- NOTE | 2024-01-17 13:15 | Anesthesia Procedure Note ---
Date of Service January 17, 2024 Anesthesia Post Epidural Note Vital Signs Vital Signs: Temp Pulse Resp BP Pulse Ox 36.8 C 97 H 16 112/64 96 01/17/24 12:10 01/17/24 12:57 01/17/24 12:55 01/17/24 12:57 01/17/24 11:55 Pain Intensity Neck: Pain Intensity: 8 Notes Mental Status: alert / awake / arousable and participated in evaluation Nausea / Vomiting: adequately controlled Pain: adequately controlled Airway Patency, RR, SpO2: stable & adequate BP & HR: stable & adequate Hydration State: stable & adequate Neuraxial Anesthesia: was administered and sensory block is resolving Anesthetic Complications: no major complications apparent and Pt Satisfied with anesthetic care Epidural: Removed without complications and With tip intact
[2024-01-17] MEDS ORDERED: SODIUM CHLORIDE 0.9% 50 ML IV PRN (16:34)
[2024-01-17] MEDS ORDERED: SODIUM CHLORIDE 0.9% 100 ML IV PRN (16:34)
[2024-01-18] MEDS: DOCUSATE SODIUM 100 MG CAP PO SCH (00:05)
--- NOTE | 2024-01-18 05:22 | Obstetrical Progress Note ---
Date of Service January 18, 2024 Assessment & Plan (1) Encounter for care and examination after delivery: (2) Drug use affecting : (3) Anemia during : Plan Encourage ambulation Encourage breast feeding Pain meds as needed Anticipate DC to home today Admission and Anticipated Discharge Date Admission Date: January 16, 2024 Supervising Physician Co-Signing Physician Notes Resident Physician Supervision Note: I interviewed and examined the patient. Discussed with Dr. Lee and agree with findings and plan as documented in the note. Any exceptions or clarifications are listed here: PP1 s/p , doing well. Desires dc Documented By: Kirti Hawk MD Subjective Pt is 33 yo post- day 1 s/p at 41w2d. complicated by UDS, anemia, hx of hep C infection Ambulation:In and out of room Voiding:voiding normally Passing gas: yes BM: yes Diet tolerance:regular diet Lochia:bloody, no clots Feeding type: breast Current pain level: 5-6 /10 improved with ibuprofen and tylenol Resting comfortably this morning in NAD. Denies WILLIS, CP, SOB, N/V/D, LE pain/swelling. Review of Systems Review of Systems: As per HPI Physical Exam Constitutional: WD/WN, vitals as above Respiratory: normal respiratory effort, lungs clear to auscultation Cardiovascular: RRR, no murmur, no edema Gastrointestinal (Abdomen): normal bowel sounds, soft, nontender, no hepatosplenomegaly Uterine fundus firm and at level of umbilicus Neurologic: PERRL, EOMI, accommodation nl, no face palsy, no dysarthria Moving all 4 extremities on command Psychiatric: A+Ox3, euthymic affect Results & Data Vital Signs (Past 12 Hours) Vital Signs Temp Pulse Resp BP Pulse Ox O2 Del Method 01/18/24 00:15 36.6 C 81 16 110/72 99 Room Air 01/17/24 20:00 36.6 C 85 18 109/71 97 Room Air Resident Activity Tracking Resident Involvement: Resident Care Provided Care Provided: Adult Hospital Medicine (2) Drug use affecting Trimester: third trimester Qualified Code(s): O99.323 - Drug use complicating , third trimester
[2024-01-18 06:33] VITALS: RESP 18; O2SAT 98
[2024-01-18] MEDS: BENZOCAINE 20% SPRY 85 APPLN/85 GM CAN EXT PRN (07:39)
[2024-01-18] MEDS: PRENATAL VITAMIN 1 TAB PO SCH (07:39)
[2024-01-18] MEDS: FERROUS SULFATE 325 MG TAB PO SCH (07:39)
[2024-01-18 08:29] VITALS: BP 109/68; PULSE 84; TEMP 97.9
[2024-01-18] MEDS ORDERED: bisacodyL 5 MG TABEC PO SCH (20:00)
[2024-01-19 15:03] LABS: Marijuana Quant, GCMS Urine 194 ng/mL (<5)
== END 2024-01-18 14:45 | disposition home or self-care (01) | DRG 806 ==
LOC: 4S1 18:53 → 4E2 01-17 16:02